=== PATIENT | female | born 1950 | race African-American/Black ===

== ENCOUNTER 2017-10-11 23:00 | Emergency (ER) | payer MEDICARE, MEDICAID ==
[~2017-10-11] VITALS: Ht 167.6 cm; Wt 109.0 kg
[~2017-10-11 23:00] MED LIST: CARV25TA47 PO; GABA-531 PO; HYDR100T26 PO; IPRA3AMP9 INH; NIFE90TA34 PO; POLY17PO3 PO
[2017-10-12] MEDS ORDERED: ALBUTEROL (0.083%) 2.5MG/3ML NEB HHN STA (00:07)
[2017-10-12] MEDS ORDERED: IPRATROPIUM BROMIDE (0.02%) 0.5MG/2.5ML NEB HHN STA (00:07)
[2017-10-12] MEDS ORDERED: METHYLPREDNISOLONE SOD SUCC 125 MG/2 ML VIAL IV STA (00:07)
[2017-10-12] MEDS ORDERED: SODIUM CHLORIDE 0.9% 1,000 ML IV ONE (00:07)
[2017-10-12] MEDS ORDERED: ASPIRIN 81MG TABLET PO ONE (00:15)
[2017-10-12] MEDS ORDERED: LEVOFLOXACIN 750MG PREMIX 150 ML IV ONE (00:15)
[2017-10-12] MEDS ORDERED: MAGNESIUM 2 G PREMIX 50 ML IV ONE (00:15)
[2017-10-12] MEDS ORDERED: NITROGLYCERIN OINT 1GM/INCH UDPKT TD ONE (00:15)
[2017-10-12 00:44] LABS: BG BASE EXCESS -6.1 mmol/L (-2.0-2.0); BG CARBOXYHEMOGLOBIN 0.4 % (0.5-1.5); BG DEOXYHEMOGLOBIN 13.6 % (0.0-5.0); BG FRACTION INSPIRED OXYGEN 21; BG HCO3 ACT 18.5 mmol/L (22.0-26.0); BG OXYGEN SATURATION 86.3 % (92.0-98.5); BG PCO2 33.6 mmHg (35.0-45.0); BG PH 7.359 (7.350-7.450); BG SAMPLE SITE RIGHT RADIAL; BG TOTAL HEMOGLOBIN 11.1 g/dL (12.0-18.0); BG VENT MODE ROOM AIR
[2017-10-12] MEDS: MAGNESIUM 1 G PREMIX 100 ML IV SCH ×2 (01:08→02:00)
[2017-10-12 01:54] LABS: BASOPHILS % 0.8 % (0.0-2.0); EOSINOPHILS % 2.8 % (0.0-5.0); HEMATOCRIT. 24.9 % (36.0-48.0); HEMOGLOBIN. 7.6 g/dL (12.0-16.0); LYMPHOCYTES % 20.5 % (20.0-50.0); MEAN CORPUSCULAR HEMOGLOBIN 24.6 pg (28.0-32.0); MEAN CORPUSCULAR VOLUME 80.5 fL (81.0-99.0); MEAN PLATELET VOLUME 11.3 fl (7.4-10.4); MONOCYTES % 9.6 % (2.0-8.0); NEUTROPHILS % 66.3 % (40.0-76.0); PLATELET 232 x1000/uL (130-400); RED BLOOD CELL COUNT 3.09 mill/uL (4.2-5.4); RED CELL DISTRIBUTION WIDTH 22.3 % (11.6-14.6)
[2017-10-12 02:02] LABS: CHLORIDE 111 mEq/L (98-107); INR 1.2; PROTHROMBIN TIME 12.2 sec (9.4-11.6)
[2017-10-12 02:08] LABS: ETHANOL BLOOD < 10 mg/dL
[2017-10-12 07:27] VITALS: BP 147/81
[2017-10-12] MEDS ORDERED: DEXTROSE 50% WATER 50ML SYRINGE IV PRN (09:30)
[2017-10-12] MEDS ORDERED: METHYLPREDNISOLONE SOD SUCC 40 MG/ML VIAL IV SCH (09:30)
[2017-10-12] MEDS ORDERED: CLONIDINE 0.1MG TABLET PO PRN (09:30)
[2017-10-12] MEDS ORDERED: AMLODIPINE 10MG TABLET PO SCH (09:30)
[2017-10-12] MEDS ORDERED: IPRATROPIUM/ALBUTEROL 0.5-3(2.5)MG/3ML NEB HHN SCH (12:00)
[2017-10-12] MEDS ORDERED: BLOOD SUGAR DIAGNOSTIC STRIP TEST SCH (13:00)
[2017-10-12] MEDS ORDERED: INSULIN LISPRO 100 UNITS/ML SUBCUT SCH (13:20)
[2017-10-12] MEDS ORDERED: FUROSEMIDE 40MG/4ML VIAL IVP SCH (17:00)
== END 2017-10-12 10:00 | disposition left against medical advice (07) ==
LOC: ER 23:31 → EDBEDREQ 10-12 02:05 → EDBEDREQTM 10-12 02:05 → ER 10-12 10:00 → CANBEDREQ 10-12 16:46
DX: J18.9 Pneumonia, unspecified organism (principal); R09.02 Hypoxemia; E11.22 Type 2 diabetes mellitus with diabetic chronic kidney disease; I12.9 Hypertensive chronic kidney disease with stage 1 through stage 4 chronic kidney disease, or unspecified chronic kidney disease; N18.9 Chronic kidney disease, unspecified; J45.909 Unspecified asthma, uncomplicated; R06.00 Dyspnea, unspecified; Z91.14 Patient's other noncompliance with medication regimen; Z99.81 Dependence on supplemental oxygen
CPT/HCPCS: 36415; 36600; 71045; 80053; 82375; 82805; 82962; 83605; 83690; 83880; 84484; 85025; 85610; 87040; 93005; 94640; 96365; 96366; 96368; 96375; 99285; G0482; J1956; J2930; J3475; J7030; J7611

== ENCOUNTER 2017-11-30 23:43 | Emergency (ER) | payer MEDICARE, MEDICAID ==
[~2017-11-30] VITALS: Ht 180.3 cm; Wt 125.0 kg
[2017-12-01] MEDS ORDERED: ALBUTEROL (0.083%) 2.5MG/3ML NEB HHN STA (01:21)
[2017-12-01] MEDS ORDERED: IPRATROPIUM BROMIDE (0.02%) 0.5MG/2.5ML NEB HHN STA (01:21)
[2017-12-01] MEDS ORDERED: FUROSEMIDE 40MG/4ML VIAL IV ONE (01:30)
[2017-12-01 02:13] LABS: BASOPHILS % 0.3 % (0.0-2.0); EOSINOPHILS % 1.1 % (0.0-5.0); MEAN CORPUSCULAR HEMOGLOBIN 27.5 pg (28.0-32.0); MEAN CORPUSCULAR VOLUME 83.8 fL (81.0-99.0); MEAN PLATELET VOLUME 12.1 fl (7.4-10.4); MONOCYTES % 8.1 % (2.0-8.0); NEUTROPHILS % 82.5 % (40.0-76.0); PLATELET 219 x1000/uL (130-400); RED BLOOD CELL COUNT 2.08 mill/uL (4.2-5.4); RED CELL DISTRIBUTION WIDTH 18.8 % (11.6-14.6)
[2017-12-01 02:17] LABS: CHLORIDE 114 mEq/L (98-107)
[2017-12-01 02:23] LABS: HEMATOCRIT. 17.4 % (36.0-48.0); HEMOGLOBIN. 5.7 g/dL (12.0-16.0)
[2017-12-01 03:03] VITALS: BP 164/83
== END 2017-12-01 04:36 | disposition left against medical advice (07) ==
LOC: ER 23:43
DX: I11.0 Hypertensive heart disease with heart failure (principal); I50.9 Heart failure, unspecified; J44.9 Chronic obstructive pulmonary disease, unspecified; E11.9 Type 2 diabetes mellitus without complications; D64.9 Anemia, unspecified; N19 Unspecified kidney failure; Z79.899 Other long term (current) drug therapy
CPT/HCPCS: 36415; 71045; 80053; 83880; 84484; 85025; 99285

== ENCOUNTER 2017-12-10 11:50 | Inpatient (IN) | payer MEDICARE, MEDICAID ==
[~2017-12-10] VITALS: Ht 157.5 cm; Wt 97.5 kg
[2017-12-10] MEDS ORDERED: SODIUM CHLORIDE 0.9% 1,000 ML IV ONE (12:44)
[2017-12-10 12:59] LABS: MEAN CORPUSCULAR HEMOGLOBIN 26.1 pg (28.0-32.0); MEAN CORPUSCULAR VOLUME 82.2 fL (81.0-99.0); PLATELET 242 x1000/uL (130-400); RED BLOOD CELL COUNT 1.81 mill/uL (4.2-5.4); RED CELL DISTRIBUTION WIDTH 18.3 % (11.6-14.6)
[2017-12-10 13:02] LABS: HEMATOCRIT. 14.9 % (36.0-48.0); HEMOGLOBIN. 4.7 g/dL (12.0-16.0)
[2017-12-10 13:04] LABS: CHLORIDE 117 mEq/L (98-107)
[2017-12-10 13:06] LABS: INR 1.1; PROTHROMBIN TIME 11.4 sec (9.1-11.1)
[2017-12-10] MEDS ORDERED: FUROSEMIDE 40MG/4ML VIAL IVP ONE (13:30)
[2017-12-10 13:32] LABS: PLATELET ESTIMATE NORMAL
[2017-12-10] MEDS ORDERED: ENALAPRIL 2.5MG/2ML VIAL 2ML IV ONE (14:00)
[2017-12-10 15:37] VITALS: BP 149/67
[2017-12-10] MEDS ORDERED: HYDROMORPHONE HCL/PF 2MG/ML CPJ IV PRN (15:45)
[2017-12-10 16:00] VITALS: BP 149/67
[2017-12-10] MEDS: ENOXAPARIN 40MG/0.4ML SYR SUBCUT SCH (17:56)
[2017-12-10] MEDS: CARVEDILOL 12.5MG TABLET PO SCH (17:56)
[2017-12-10] MEDS: FUROSEMIDE 40MG/4ML VIAL IVP SCH (17:57)
[2017-12-10] MEDS ORDERED: MINO2.5T2 PO (18:26)
[2017-12-10] MEDS ORDERED: VERA80TA2 PO (18:26)
[2017-12-10] MEDS ORDERED: MONT10TA24 PO (18:26)
[2017-12-10] MEDS ORDERED: ASPI-1159 PO (18:26)
[2017-12-10] MEDS ORDERED: ROSU10TA25 PO (18:26)
[2017-12-10] MEDS ORDERED: CLON-457 PO (18:26)
[2017-12-10] MEDS ORDERED: SITA50TA3 PO (18:26)
[2017-12-10] MEDS ORDERED: FURO80TA3 PO (18:26)
[2017-12-10] MEDS ORDERED: DEXTROSE 50% WATER 50ML SYRINGE IV PRN (19:30)
[2017-12-10 20:00] VITALS: BP 151/53
[2017-12-10] MEDS: BLOOD SUGAR DIAGNOSTIC STRIP TEST SCH (20:42)
[2017-12-10] MEDS: INSULIN LISPRO 100 UNITS/ML SUBCUT SCH (20:42)
[2017-12-11] VITALS (12 sets, daily range): BP systolic 136–181; BP diastolic 41–83
[2017-12-11] MEDS: IPRATROPIUM/ALBUTEROL 0.5-3(2.5)MG/3ML NEB HHN SCH ×4 (00:34→20:42)
[2017-12-11] MEDS: CARVEDILOL 12.5MG TABLET PO SCH ×3 (00:38→21:54)
[2017-12-11] MEDS: VERAPAMIL HCL 80 MG TABLET PO SCH ×3 (05:32→22:00)
[2017-12-11] MEDS: BLOOD SUGAR DIAGNOSTIC STRIP TEST SCH ×4 (06:34→21:54)
[2017-12-11 06:45] LABS: BASOPHILS % 0.6 % (0.0-2.0); EOSINOPHILS % 1.5 % (0.0-5.0); LYMPHOCYTES % 14.8 % (20.0-50.0); MEAN CORPUSCULAR VOLUME 83.2 fL (81.0-99.0); MONOCYTES % 8.4 % (2.0-8.0); NEUTROPHILS % 74.7 % (40.0-76.0); PLATELET 246 x1000/uL (130-400); RED BLOOD CELL COUNT 1.86 mill/uL (4.2-5.4); RED CELL DISTRIBUTION WIDTH 18.1 % (11.6-14.6)
[2017-12-11 07:09] LABS: PHOSPHORUS 5.2 mg/dL (2.5-4.9)
[2017-12-11 07:13] LABS: CREATINE KINASE MB FRACTION 1.3 ng/mL (0.5-3.6)
[2017-12-11 07:28] LABS: HEMATOCRIT. 15.5 % (36.0-48.0); HEMOGLOBIN. 4.8 g/dL (12.0-16.0)
[2017-12-11] MEDS: INSULIN LISPRO 100 UNITS/ML SUBCUT SCH ×4 (08:10→21:00)
[2017-12-11] MEDS: FUROSEMIDE 40MG/4ML VIAL IVP SCH (08:57)
[2017-12-11] MEDS: DEXTROSE 5% WATER 1,000 ML IV SCH (12:57)
[2017-12-11 13:04] LABS: BG BASE EXCESS -8.1 mmol/L (-2.0-2.0); BG CARBOXYHEMOGLOBIN 0.4 % (0.5-1.5); BG DEOXYHEMOGLOBIN 11.6 % (0.0-5.0); BG FRACTION INSPIRED OXYGEN 21; BG HCO3 ACT 17.4 mmol/L (22.0-26.0); BG METHEMOGLOBIN 0.6 % (0.0-1.5); BG OXYGEN SATURATION 88.3 % (92.0-98.5); BG OXYHEMOGLOBIN 87.4 % (94.0-97.0); BG PCO2 35.6 mmHg (35.0-45.0); BG PH 7.308 (7.350-7.450); BG PO2 59.1 mmHg (75.0-100.0); BG SAMPLE SITE LEFT RADIAL; BG TOTAL HEMOGLOBIN 5.3 g/dL (12.0-18.0); BG VENT MODE ROOM AIR
[2017-12-11] MEDS: ENOXAPARIN 40MG/0.4ML SYR SUBCUT SCH (16:00)
[2017-12-11] MEDS ORDERED: FUROSEMIDE 40MG/4ML VIAL IVP NR (16:13)
[2017-12-11] MEDS ORDERED: CEFEPIME 2,000 MG in DEXT 5% WATER 100 ML IV NR (17:30)
[2017-12-11] MEDS: ENALAPRIL 2.5MG/2ML VIAL 2ML IV SCH (17:39)
[2017-12-11] MEDS: MONTELUKAST SODIUM 10MG TABLET PO SCH (17:40)
[2017-12-11] MEDS: HYDRALAZINE 20MG/ML VIAL IV SCH ×2 (17:40→21:55)
[2017-12-11] MEDS: METRONIDAZOLE 500 MG PREMIX 100 ML IV SCH ×2 (18:00→21:53)
[2017-12-11] MEDS: LORAZEPAM 2MG/ML CPJ IV PRN (22:34)
[2017-12-12] VITALS (22 sets, daily range): BP systolic 150–208; BP diastolic 67–117
[2017-12-12] MEDS: METRONIDAZOLE 500 MG PREMIX 100 ML IV SCH ×3 (01:28→17:52)
[2017-12-12] MEDS: ENALAPRIL 2.5MG/2ML VIAL 2ML IV SCH ×3 (01:28→17:51)
[2017-12-12] MEDS: IPRATROPIUM/ALBUTEROL 0.5-3(2.5)MG/3ML NEB HHN SCH ×4 (02:07→20:45)
[2017-12-12] MEDS: HYDRALAZINE 20MG/ML VIAL IV SCH ×4 (04:00→22:00)
[2017-12-12] MEDS: INSULIN LISPRO 100 UNITS/ML SUBCUT SCH ×4 (08:00→21:00)
[2017-12-12] MEDS: BLOOD SUGAR DIAGNOSTIC STRIP TEST SCH ×4 (08:12→20:34)
[2017-12-12] MEDS: DEXTROSE 5% WATER 1,000 ML IV SCH (08:12)
[2017-12-12] MEDS: CARVEDILOL 12.5MG TABLET PO SCH ×3 (08:13→20:20)
[2017-12-12 10:15] LABS: BASOPHILS % 0.5 % (0.0-2.0); EOSINOPHILS % 1.8 % (0.0-5.0); LYMPHOCYTES % 9.8 % (20.0-50.0); MEAN CORPUSCULAR HEMOGLOBIN 26.7 pg (28.0-32.0); MEAN CORPUSCULAR VOLUME 83.8 fL (81.0-99.0); MONOCYTES % 7.5 % (2.0-8.0); NEUTROPHILS % 80.4 % (40.0-76.0); PLATELET 271 x1000/uL (130-400); RED BLOOD CELL COUNT 2.39 mill/uL (4.2-5.4); RED CELL DISTRIBUTION WIDTH 16.8 % (11.6-14.6)
[2017-12-12 10:23] LABS: HEMOGLOBIN. 6.4 g/dL (12.0-16.0)
[2017-12-12] MEDS: CLONIDINE 0.1MG TABLET PO PRN (10:46)
[2017-12-12 12:29] LABS: CLARITY URINE CLOUDY (CLEAR); COLOR URINE YELLOW (YELLOW); KETONES URINE NEGATIVE (NEGATIVE); LEUKOCYTE ESTERASE URINE 1+ (NEGATIVE); NITRITE URINE NEGATIVE (NEGATIVE); OCCULT BLOOD URINE 2+ (NEGATIVE); PROTEIN URINE 3+ (NEGATIVE); SPECIFIC GRAVITY URINE 1.016 (1.005-1.030); UROBILINOGEN URINE 0.2 E.U./dL (0.2-1.0)
[2017-12-12] MEDS: VERAPAMIL HCL 80 MG TABLET PO SCH ×2 (13:46→23:05)
[2017-12-12] MEDS: ENOXAPARIN 40MG/0.4ML SYR SUBCUT SCH (15:20)
[2017-12-12] MEDS: CEFEPIME 1,000 MG in DEXTROSE 5% WATER 50 ML IV SCH (15:43)
[2017-12-12] MEDS: MONTELUKAST SODIUM 10MG TABLET PO SCH (17:00)
[2017-12-12] MEDS: ACETAMINOPHEN 325MG TABLET PO PRN (20:27)
[2017-12-12] MEDS: LORAZEPAM 2MG/ML CPJ IV PRN (22:19)
[2017-12-13] VITALS (17 sets, daily range): BP systolic 151–218; BP diastolic 58–132
[2017-12-13] MEDS: LORAZEPAM 2MG/ML CPJ IV PRN ×2 (02:13→21:13)
[2017-12-13] MEDS: METRONIDAZOLE 500 MG PREMIX 100 ML IV SCH ×3 (02:20→18:29)
[2017-12-13] MEDS: HYDRALAZINE 20MG/ML VIAL IV SCH ×4 (04:00→21:50)
[2017-12-13] MEDS: ENALAPRIL 2.5MG/2ML VIAL 2ML IV SCH ×5 (06:33→23:44)
[2017-12-13] MEDS: VERAPAMIL HCL 80 MG TABLET PO SCH ×3 (06:34→21:12)
[2017-12-13] MEDS: CLONIDINE 0.1MG TABLET PO PRN ×2 (07:29→13:50)
[2017-12-13] MEDS: BLOOD SUGAR DIAGNOSTIC STRIP TEST SCH ×4 (07:38→20:56)
[2017-12-13] MEDS: INSULIN LISPRO 100 UNITS/ML SUBCUT SCH ×4 (08:00→20:56)
[2017-12-13 08:25] LABS: BG BASE EXCESS -9.3 mmol/L (-2.0-2.0); BG CARBOXYHEMOGLOBIN 0.5 % (0.5-1.5); BG DEOXYHEMOGLOBIN 11.2 % (0.0-5.0); BG FRACTION INSPIRED OXYGEN 21; BG HCO3 ACT 16.1 mmol/L (22.0-26.0); BG METHEMOGLOBIN 0.2 % (0.0-1.5); BG OXYGEN SATURATION 88.7 % (92.0-98.5); BG OXYHEMOGLOBIN 88.1 % (94.0-97.0); BG PCO2 32.8 mmHg (35.0-45.0); BG PH 7.308 (7.350-7.450); BG PO2 60.9 mmHg (75.0-100.0); BG SAMPLE SITE RIGHT RADIAL; BG TOTAL HEMOGLOBIN 6.8 g/dL (12.0-18.0); BG VENT MODE ROOM AIR
[2017-12-13] MEDS: IPRATROPIUM/ALBUTEROL 0.5-3(2.5)MG/3ML NEB HHN SCH ×3 (08:46→20:28)
[2017-12-13] MEDS: CARVEDILOL 12.5MG TABLET PO SCH (09:00)
[2017-12-13] MEDS: ENOXAPARIN 40MG/0.4ML SYR SUBCUT SCH (16:00)
[2017-12-13] MEDS: CEFEPIME 1,000 MG in DEXTROSE 5% WATER 50 ML IV SCH (16:54)
[2017-12-13] MEDS ORDERED: METOPROLOL TARTRATE 5MG/5ML VIAL IV SCH (17:30)
[2017-12-13] MEDS: MONTELUKAST SODIUM 10MG TABLET PO SCH (18:00)
[2017-12-13] MEDS: AMLODIPINE 5MG TABLET PO SCH (18:28)
[2017-12-13 19:07] LABS: HEMATOCRIT 22.2 % (36.0-48.0); HEMOGLOBIN 7.2 g/dL (12.0-16.0)
[2017-12-13] MEDS: METOPROLOL TARTRATE 50MG TABLET PO SCH (20:35)
[2017-12-14] VITALS (14 sets, daily range): BP systolic 159–209; BP diastolic 64–89
[2017-12-14] MEDS: LORAZEPAM 2MG/ML CPJ IV PRN ×2 (01:20→22:48)
[2017-12-14] MEDS: METRONIDAZOLE 500 MG PREMIX 100 ML IV SCH ×3 (01:20→17:53)
[2017-12-14] MEDS: HYDRALAZINE 20MG/ML VIAL IV PRN ×2 (01:21→23:10)
[2017-12-14] MEDS: IPRATROPIUM/ALBUTEROL 0.5-3(2.5)MG/3ML NEB HHN SCH ×4 (01:58→20:22)
[2017-12-14] MEDS: VERAPAMIL HCL 80 MG TABLET PO SCH ×3 (06:05→22:00)
[2017-12-14] MEDS: HYDRALAZINE 20MG/ML VIAL IV SCH ×2 (06:05→09:47)
[2017-12-14] MEDS: ENALAPRIL 2.5MG/2ML VIAL 2ML IV SCH ×3 (06:05→17:53)
[2017-12-14 06:32] LABS: HEMATOCRIT. 23.3 % (36.0-48.0); HEMOGLOBIN. 7.5 g/dL (12.0-16.0); MEAN CORPUSCULAR HEMOGLOBIN 26.8 pg (28.0-32.0); MEAN CORPUSCULAR VOLUME 83.7 fL (81.0-99.0); MEAN PLATELET VOLUME 10.8 fl (7.4-10.4); PLATELET 281 x1000/uL (130-400); RED BLOOD CELL COUNT 2.78 mill/uL (4.2-5.4); RED CELL DISTRIBUTION WIDTH 16.5 % (11.6-14.6)
[2017-12-14 07:21] LABS: PHOSPHORUS 4.9 mg/dL (2.5-4.9)
[2017-12-14] MEDS: INSULIN LISPRO 100 UNITS/ML SUBCUT SCH ×4 (08:00→21:00)
[2017-12-14] MEDS: BLOOD SUGAR DIAGNOSTIC STRIP TEST SCH ×4 (08:25→21:00)
[2017-12-14] MEDS ORDERED: CLONIDINE HCL 0.1MG/24HR PATCH TD SCH (09:00)
[2017-12-14] MEDS: METOPROLOL TARTRATE 50MG TABLET PO SCH ×2 (09:22→21:00)
[2017-12-14] MEDS: AMLODIPINE 5MG TABLET PO SCH ×2 (09:22→17:52)
[2017-12-14] MEDS: DEXTROSE 5% WATER 1,000 ML IV SCH (09:47)
[2017-12-14] MEDS: CLONIDINE 0.1MG TABLET PO PRN (10:44)
[2017-12-14 15:10] LABS: BG BASE EXCESS -8.1 mmol/L (-2.0-2.0); BG CARBOXYHEMOGLOBIN 0.1 % (0.5-1.5); BG DEOXYHEMOGLOBIN 10.9 % (0.0-5.0); BG FRACTION INSPIRED OXYGEN 36; BG HCO3 ACT 16.6 mmol/L (22.0-26.0); BG METHEMOGLOBIN 0.8 % (0.0-1.5); BG OXYHEMOGLOBIN 88.2 % (94.0-97.0); BG PCO2 30.7 mmHg (35.0-45.0); BG PH 7.351 (7.350-7.450); BG PO2 57.1 mmHg (75.0-100.0); BG SAMPLE SITE RIGHT RADIAL; BG TOTAL HEMOGLOBIN 8.4 g/dL (12.0-18.0); BG VENT MODE NASAL CANNULA
[2017-12-14] MEDS: ISOSORB DINIT/HYDRALAZINE HCL 20/37.5MG TABLET PO SCH ×2 (15:24→22:00)
[2017-12-14] MEDS: CEFEPIME 1,000 MG in DEXTROSE 5% WATER 50 ML IV SCH (15:25)
[2017-12-14 15:34] LABS: PLATELET ESTIMATE NORMAL
[2017-12-14] MEDS: ENOXAPARIN 40MG/0.4ML SYR SUBCUT SCH (16:00)
[2017-12-14] MEDS: MONTELUKAST SODIUM 10MG TABLET PO SCH (17:52)
[2017-12-15] VITALS (14 sets, daily range): BP systolic 130–201; BP diastolic 48–149
[2017-12-15] MEDS: IPRATROPIUM/ALBUTEROL 0.5-3(2.5)MG/3ML NEB HHN SCH ×4 (01:10→20:28)
[2017-12-15] MEDS: DEXTROSE 5% WATER 1,000 ML IV SCH (03:10)
[2017-12-15] MEDS: METRONIDAZOLE 500 MG PREMIX 100 ML IV SCH ×2 (03:12→10:00)
[2017-12-15] MEDS: ISOSORB DINIT/HYDRALAZINE HCL 20/37.5MG TABLET PO SCH ×4 (06:52→22:01)
[2017-12-15] MEDS: ENALAPRIL 2.5MG/2ML VIAL 2ML IV SCH ×4 (06:52→18:36)
[2017-12-15] MEDS: VERAPAMIL HCL 80 MG TABLET PO SCH ×4 (06:53→22:00)
[2017-12-15] MEDS: BLOOD SUGAR DIAGNOSTIC STRIP TEST SCH ×4 (07:30→21:51)
[2017-12-15] MEDS: INSULIN LISPRO 100 UNITS/ML SUBCUT SCH ×4 (08:00→21:00)
[2017-12-15] MEDS: METOPROLOL TARTRATE 50MG TABLET PO SCH ×2 (09:00→22:00)
[2017-12-15] MEDS: AMLODIPINE 5MG TABLET PO SCH ×2 (09:00→16:14)
[2017-12-15 10:02] LABS: BASOPHILS % 0.4 % (0.0-2.0); EOSINOPHILS % 0.7 % (0.0-5.0); HEMATOCRIT. 24.2 % (36.0-48.0); HEMOGLOBIN. 7.8 g/dL (12.0-16.0); LYMPHOCYTES % 8.7 % (20.0-50.0); MEAN CORPUSCULAR HEMOGLOBIN 27.2 pg (28.0-32.0); MEAN CORPUSCULAR VOLUME 84.8 fL (81.0-99.0); MEAN PLATELET VOLUME 11.2 fl (7.4-10.4); MONOCYTES % 7.8 % (2.0-8.0); NEUTROPHILS % 82.4 % (40.0-76.0); PLATELET 274 x1000/uL (130-400); RED BLOOD CELL COUNT 2.85 mill/uL (4.2-5.4); RED CELL DISTRIBUTION WIDTH 16.9 % (11.6-14.6)
[2017-12-15 10:38] LABS: PHOSPHORUS 5.5 mg/dL (2.5-4.9)
[2017-12-15] MEDS ORDERED: CLONIDINE 0.2MG TABLET PO PRN (12:15)
[2017-12-15] MEDS ORDERED: FUROSEMIDE 20MG/2ML VIAL IVP NR (12:38)
[2017-12-15 12:48] LABS: BG BASE EXCESS -12.1 mmol/L (-2.0-2.0); BG CARBOXYHEMOGLOBIN 0.3 % (0.5-1.5); BG DEOXYHEMOGLOBIN 10.6 % (0.0-5.0); BG FRACTION INSPIRED OXYGEN 21; BG HCO3 ACT 13.2 mmol/L (22.0-26.0); BG METHEMOGLOBIN 0.2 % (0.0-1.5); BG OXYGEN SATURATION 89.3 % (92.0-98.5); BG OXYHEMOGLOBIN 88.9 % (94.0-97.0); BG PCO2 27.8 mmHg (35.0-45.0); BG PH 7.295 (7.350-7.450); BG PO2 62.4 mmHg (75.0-100.0); BG SAMPLE SITE RIGHT BRACHIAL; BG TOTAL HEMOGLOBIN 7.8 g/dL (12.0-18.0); BG VENT MODE ROOM AIR
[2017-12-15] MEDS: METRONIDAZOLE 500MG TABLET PO SCH ×2 (14:00→22:00)
[2017-12-15] MEDS: ENOXAPARIN 40MG/0.4ML SYR SUBCUT SCH (16:00)
[2017-12-15] MEDS: CEFEPIME 1,000 MG in DEXTROSE 5% WATER 50 ML IV SCH (16:28)
[2017-12-15] MEDS: MONTELUKAST SODIUM 10MG TABLET PO SCH (16:43)
[2017-12-15] MEDS: CLONIDINE HCL 0.3MG/24HR PATCH TD SCH (16:43)
[2017-12-16] VITALS (12 sets, daily range): BP systolic 117–171; BP diastolic 40–88
[2017-12-16] MEDS: IPRATROPIUM/ALBUTEROL 0.5-3(2.5)MG/3ML NEB HHN SCH ×4 (02:07→20:10)
[2017-12-16] MEDS: METRONIDAZOLE 500MG TABLET PO SCH ×3 (05:52→22:19)
[2017-12-16] MEDS: VERAPAMIL HCL 80 MG TABLET PO SCH ×3 (05:52→22:48)
[2017-12-16] MEDS: ENALAPRIL 2.5MG/2ML VIAL 2ML IV SCH ×4 (05:52→18:00)
[2017-12-16] MEDS: ISOSORB DINIT/HYDRALAZINE HCL 20/37.5MG TABLET PO SCH ×3 (05:52→21:16)
[2017-12-16] MEDS: DEXTROSE 5% WATER 1,000 ML IV SCH ×2 (05:53→12:52)
[2017-12-16] MEDS: BLOOD SUGAR DIAGNOSTIC STRIP TEST SCH ×4 (07:30→21:00)
[2017-12-16] MEDS: INSULIN LISPRO 100 UNITS/ML SUBCUT SCH ×4 (08:00→21:00)
[2017-12-16] MEDS ORDERED: FUROSEMIDE 20MG/2ML VIAL IVP SCH (09:00)
[2017-12-16] MEDS: FUROSEMIDE 40MG/4ML VIAL IVP SCH (09:58)
[2017-12-16] MEDS: AMLODIPINE 5MG TABLET PO SCH ×2 (09:58→17:53)
[2017-12-16] MEDS: METOPROLOL TARTRATE 50MG TABLET PO SCH ×2 (09:58→21:05)
[2017-12-16] MEDS: HYDRALAZINE 20MG/ML VIAL IV PRN (09:59)
[2017-12-16] MEDS: LORAZEPAM 2MG/ML CPJ IV PRN (11:51)
[2017-12-16] MEDS: CEFEPIME 1,000 MG in DEXTROSE 5% WATER 50 ML IV SCH (17:53)
[2017-12-16] MEDS: MONTELUKAST SODIUM 10MG TABLET PO SCH (17:53)
[2017-12-16] MEDS: ENOXAPARIN 40MG/0.4ML SYR SUBCUT SCH (18:57)
[2017-12-17] VITALS (28 sets, daily range): BP systolic 126–185; BP diastolic 30–121
[2017-12-17] MEDS: LORAZEPAM 2MG/ML CPJ IV PRN (00:09)
[2017-12-17] MEDS: ENALAPRIL 2.5MG/2ML VIAL 2ML IV SCH ×3 (00:13→12:00)
[2017-12-17] MEDS: IPRATROPIUM/ALBUTEROL 0.5-3(2.5)MG/3ML NEB HHN SCH ×4 (01:54→20:29)
[2017-12-17] MEDS: ISOSORB DINIT/HYDRALAZINE HCL 20/37.5MG TABLET PO SCH ×3 (06:00→16:41)
[2017-12-17] MEDS: METRONIDAZOLE 500MG TABLET PO SCH ×3 (06:00→23:33)
[2017-12-17] MEDS: BLOOD SUGAR DIAGNOSTIC STRIP TEST SCH ×4 (07:30→21:35)
[2017-12-17] MEDS: INSULIN LISPRO 100 UNITS/ML SUBCUT SCH ×4 (08:00→21:00)
[2017-12-17] MEDS ORDERED: FUROSEMIDE 40MG/4ML VIAL IVP NR (08:45)
[2017-12-17] MEDS: METOPROLOL TARTRATE 50MG TABLET PO SCH ×2 (09:00→21:00)
[2017-12-17] MEDS: AMLODIPINE 5MG TABLET PO SCH ×2 (09:00→17:00)
[2017-12-17] MEDS: FUROSEMIDE 40MG/4ML VIAL IVP SCH (09:00)
[2017-12-17 11:32] LABS: BG BASE EXCESS -10.8 mmol/L (-2.0-2.0); BG CARBOXYHEMOGLOBIN 0.4 % (0.5-1.5); BG DEOXYHEMOGLOBIN 8.1 % (0.0-5.0); BG FRACTION INSPIRED OXYGEN 32; BG HCO3 ACT 17.1 mmol/L (22.0-26.0); BG METHEMOGLOBIN 0.2 % (0.0-1.5); BG OXYGEN SATURATION 91.9 % (92.0-98.5); BG OXYHEMOGLOBIN 91.3 % (94.0-97.0); BG PCO2 47.8 mmHg (35.0-45.0); BG PH 7.172 (7.350-7.450); BG PO2 71.9 mmHg (75.0-100.0); BG SAMPLE SITE RIGHT RADIAL; BG TOTAL HEMOGLOBIN 8.5 g/dL (12.0-18.0); BG VENT MODE NASAL CANNULA
[2017-12-17 14:01] LABS: AMMONIA 46 uMol/L (<32)
[2017-12-17] MEDS: ENOXAPARIN 40MG/0.4ML SYR SUBCUT SCH (16:00)
[2017-12-17 16:40] LABS: CHLORIDE 116 mEq/L (98-107)
[2017-12-17] MEDS: MONTELUKAST SODIUM 10MG TABLET PO SCH (17:00)
[2017-12-17] MEDS ORDERED: EPINEPHRINE 0.1MG/ML (1:10,000) 10ML SYR ONE (17:47)
[2017-12-17] MEDS ORDERED: SODIUM BICARBONATE 7.5% 0.9 MEQ/ML 50ML SYR IV ONE (17:47)
[2017-12-17] MEDS ORDERED: ATROPINE SULFATE 1MG/10ML SYR ONE (17:47)
[2017-12-17] MEDS: CEFEPIME 1,000 MG in DEXTROSE 5% WATER 50 ML IV SCH (19:29)
[2017-12-17 21:00] LABS: BG BASE EXCESS -11.1 mmol/L (-2.0-2.0); BG CARBOXYHEMOGLOBIN 0.3 % (0.5-1.5); BG DEOXYHEMOGLOBIN 0.8 % (0.0-5.0); BG FRACTION INSPIRED OXYGEN 100; BG HCO3 ACT 15.4 mmol/L (22.0-26.0); BG METHEMOGLOBIN 0.3 % (0.0-1.5); BG OXYGEN SATURATION 99.2 % (92.0-98.5); BG OXYHEMOGLOBIN 98.6 % (94.0-97.0); BG PH 7.238 (7.350-7.450); BG PO2 170.1 mmHg (75.0-100.0); BG SAMPLE SITE RIGHT RADIAL; BG TIDAL VOLUME(mL) 500 mL; BG TOTAL HEMOGLOBIN 8.6 g/dL (12.0-18.0); BG VENT MODE VENT - A/C; BG VENT RATE 14 set
[2017-12-17] MEDS ORDERED: PROPOFOL 10MG/ML 100ML 100 ML IV PRN (21:45)
[2017-12-17] MEDS: VERAPAMIL HCL 80 MG TABLET PO SCH (22:00)
[2017-12-17] MEDS: PROPOFOL 10MG/ML 100ML 100 ML IV PRN (23:20)
[2017-12-17 23:49] LABS: PHOSPHORUS 5.6 mg/dL (2.5-4.9)
[2017-12-18] VITALS (90 sets, daily range): BP systolic 101–197; BP diastolic 52–116
[2017-12-18] MEDS ORDERED: SODIUM BICARBONATE 8.4% 1 MEQ/ML 50ML SYR IV ONE (01:41)
[2017-12-18] MEDS: ENALAPRIL 2.5MG/2ML VIAL 2ML IV SCH ×6 (01:48→23:39)
[2017-12-18] MEDS: IPRATROPIUM/ALBUTEROL 0.5-3(2.5)MG/3ML NEB HHN SCH ×4 (01:52→20:24)
[2017-12-18] MEDS ORDERED: SODIUM BICARBONATE 8.4% 1 MEQ/ML 50ML SYR IV SCH (01:55)
[2017-12-18 05:32] LABS: HEMATOCRIT. 24.7 % (36.0-48.0); HEMOGLOBIN. 7.6 g/dL (12.0-16.0); MEAN CORPUSCULAR HEMOGLOBIN 26.3 pg (28.0-32.0); MEAN CORPUSCULAR VOLUME 85.3 fL (81.0-99.0); MEAN PLATELET VOLUME 11.5 fl (7.4-10.4); PLATELET 144 x1000/uL (130-400); RED CELL DISTRIBUTION WIDTH 16.9 % (11.6-14.6)
[2017-12-18] MEDS: VERAPAMIL HCL 80 MG TABLET PO SCH ×3 (05:57→23:30)
[2017-12-18] MEDS: METRONIDAZOLE 500MG TABLET PO SCH (05:57)
[2017-12-18] MEDS: PROPOFOL 10MG/ML 100ML 100 ML IV PRN ×4 (05:59→21:03)
[2017-12-18] MEDS: ISOSORB DINIT/HYDRALAZINE HCL 20/37.5MG TABLET PO SCH ×4 (06:00→20:56)
[2017-12-18] MEDS: INSULIN LISPRO 100 UNITS/ML SUBCUT SCH ×4 (06:41→20:52)
[2017-12-18] MEDS: BLOOD SUGAR DIAGNOSTIC STRIP TEST SCH ×4 (06:41→20:53)
[2017-12-18 07:28] LABS: BG BASE EXCESS -9.8 mmol/L (-2.0-2.0); BG CARBOXYHEMOGLOBIN 0.4 % (0.5-1.5); BG DEOXYHEMOGLOBIN 0.8 % (0.0-5.0); BG HCO3 ACT 16.8 mmol/L (22.0-26.0); BG METHEMOGLOBIN 0.4 % (0.0-1.5); BG OXYGEN SATURATION 99.2 % (92.0-98.5); BG OXYHEMOGLOBIN 98.4 % (94.0-97.0); BG PCO2 40.1 mmHg (35.0-45.0); BG PH 7.241 (7.350-7.450); BG PO2 176.1 mmHg (75.0-100.0); BG SAMPLE SITE RIGHT RADIAL; BG TIDAL VOLUME(mL) 500 mL; BG TOTAL HEMOGLOBIN 7.9 g/dL (12.0-18.0); BG VENT MODE VENT - A/C; BG VENT RATE 18 set
[2017-12-18] MEDS: FUROSEMIDE 40MG/4ML VIAL IVP SCH (08:44)
[2017-12-18] MEDS: PANTOPRAZOLE SODIUM 40 MG/VIAL IV SCH (08:44)
[2017-12-18] MEDS ORDERED: PIPERACILLIN/TAZ 3.375G PREMIX 50 ML IV SCH (08:45)
[2017-12-18] MEDS ORDERED: SODIUM BICARBONATE 8.4% 1 MEQ/ML 50ML SYR IV NR (08:45)
[2017-12-18] MEDS: METOPROLOL TARTRATE 50MG TABLET PO SCH ×2 (08:45→20:56)
[2017-12-18] MEDS: AMLODIPINE 5MG TABLET PO SCH ×2 (09:00→16:42)
[2017-12-18 09:31] LABS: PLATELET ESTIMATE NORMAL
[2017-12-18] MEDS: PIPERACILLIN/TAZ 2.25G PREMIX 50 ML IV SCH ×2 (10:09→17:36)
[2017-12-18] MEDS ORDERED: LIDOCAINE HCL 1% 10 MG/ML 10ML VIAL ONE (10:36)
[2017-12-18] MEDS ORDERED: VANCOMYCIN 2,000 MG in DEXT 5% WATER 500 ML IV SCH (11:00)
[2017-12-18 12:01] LABS: INR 1.3; PARTIAL THROMBOPLASTIN TIME 30.6 sec (23.4-31.0); PROTHROMBIN TIME 13.4 sec (9.1-11.1)
[2017-12-18 13:17] LABS: CLARITY URINE CLEAR (CLEAR); COLOR URINE YELLOW (YELLOW); KETONES URINE NEGATIVE (NEGATIVE); LEUKOCYTE ESTERASE URINE TRACE (NEGATIVE); NITRITE URINE NEGATIVE (NEGATIVE); OCCULT BLOOD URINE 2+ (NEGATIVE); PROTEIN URINE 3+ (NEGATIVE); SPECIFIC GRAVITY URINE 1.013 (1.005-1.030); UROBILINOGEN URINE 0.2 E.U./dL (0.2-1.0)
[2017-12-18] MEDS ORDERED: CEFEPIME 2,000 MG in DEXTROSE 5% WATER 50 ML IV SCH (16:00)
[2017-12-18] MEDS: ENOXAPARIN 40MG/0.4ML SYR SUBCUT SCH (16:40)
[2017-12-18] MEDS: MONTELUKAST SODIUM 10MG TABLET PO SCH (16:45)
[2017-12-19] VITALS (71 sets, daily range): BP systolic 126–181; BP diastolic 53–101
[2017-12-19] MEDS: PIPERACILLIN/TAZ 2.25G PREMIX 50 ML IV SCH ×3 (01:55→18:08)
[2017-12-19] MEDS: IPRATROPIUM/ALBUTEROL 0.5-3(2.5)MG/3ML NEB HHN SCH ×3 (02:45→19:58)
[2017-12-19] MEDS: VERAPAMIL HCL 80 MG TABLET PO SCH ×4 (06:00→21:27)
[2017-12-19] MEDS: PROPOFOL 10MG/ML 100ML 100 ML IV PRN ×2 (06:03→15:58)
[2017-12-19] MEDS: ISOSORB DINIT/HYDRALAZINE HCL 20/37.5MG TABLET PO SCH ×3 (06:04→21:26)
[2017-12-19] MEDS: BLOOD SUGAR DIAGNOSTIC STRIP TEST SCH ×4 (07:00→21:27)
[2017-12-19] MEDS: INSULIN LISPRO 100 UNITS/ML SUBCUT SCH ×4 (07:00→21:00)
[2017-12-19] MEDS: ENALAPRIL 2.5MG/2ML VIAL 2ML IV SCH ×3 (07:00→17:51)
[2017-12-19] MEDS: AMLODIPINE 5MG TABLET PO SCH ×2 (08:12→17:50)
[2017-12-19] MEDS: PANTOPRAZOLE SODIUM 40 MG/VIAL IV SCH (08:13)
[2017-12-19] MEDS: METOPROLOL TARTRATE 50MG TABLET PO SCH ×2 (08:14→21:26)
[2017-12-19 09:12] LABS: BG BASE EXCESS -5.2 mmol/L (-2.0-2.0); BG CARBOXYHEMOGLOBIN 0.8 % (0.5-1.5); BG DEOXYHEMOGLOBIN 4.4 % (0.0-5.0); BG FRACTION INSPIRED OXYGEN 50; BG HCO3 ACT 18.4 mmol/L (22.0-26.0); BG METHEMOGLOBIN 0.3 % (0.0-1.5); BG OXYGEN SATURATION 95.6 % (92.0-98.5); BG OXYHEMOGLOBIN 94.5 % (94.0-97.0); BG PCO2 27.9 mmHg (35.0-45.0); BG PH 7.436 (7.350-7.450); BG SAMPLE SITE RIGHT RADIAL; BG TIDAL VOLUME(mL) 500 mL; BG TOTAL HEMOGLOBIN 7.4 g/dL (12.0-18.0); BG VENT MODE VENT - A/C; BG VENT RATE 20 set
[2017-12-19] MEDS ORDERED: VANCOMYCIN 1250MG in DEXTROSE 5% WATER 250ML IV SCH (11:00)
[2017-12-19 12:17] LABS: BASOPHILS % 0.6 % (0.0-2.0); EOSINOPHILS % 1.2 % (0.0-5.0); HEMATOCRIT. 21.8 % (36.0-48.0); HEMOGLOBIN. 7.2 g/dL (12.0-16.0); LYMPHOCYTES % 9.2 % (20.0-50.0); MEAN CORPUSCULAR HEMOGLOBIN 27.3 pg (28.0-32.0); MEAN CORPUSCULAR VOLUME 82.1 fL (81.0-99.0); MEAN PLATELET VOLUME 10.9 fl (7.4-10.4); MONOCYTES % 10.5 % (2.0-8.0); NEUTROPHILS % 78.5 % (40.0-76.0); PLATELET 138 x1000/uL (130-400); RED BLOOD CELL COUNT 2.66 mill/uL (4.2-5.4); RED CELL DISTRIBUTION WIDTH 16.4 % (11.6-14.6)
[2017-12-19] MEDS: ENOXAPARIN 40MG/0.4ML SYR SUBCUT SCH (17:49)
[2017-12-19] MEDS: MONTELUKAST SODIUM 10MG TABLET PO SCH (17:50)
[2017-12-19] MEDS ORDERED: PROPOFOL 10MG/ML 100ML 100 ML IV PRN ×2 (20:15→20:45)
[2017-12-20] VITALS (36 sets, daily range): BP systolic 110–203; BP diastolic 48–96
[2017-12-20] MEDS: ENALAPRIL 2.5MG/2ML VIAL 2ML IV SCH ×4 (00:31→18:57)
[2017-12-20 01:38] LABS: BG BASE EXCESS -5.3 mmol/L (-2.0-2.0); BG CARBOXYHEMOGLOBIN 0.3 % (0.5-1.5); BG DEOXYHEMOGLOBIN 5.6 % (0.0-5.0); BG FRACTION INSPIRED OXYGEN 100; BG HCO3 ACT 19.5 mmol/L (22.0-26.0); BG METHEMOGLOBIN 0.3 % (0.0-1.5); BG OXYGEN SATURATION 94.4 % (92.0-98.5); BG OXYHEMOGLOBIN 93.8 % (94.0-97.0); BG PCO2 34.9 mmHg (35.0-45.0); BG PH 7.365 (7.350-7.450); BG PO2 79.6 mmHg (75.0-100.0); BG SAMPLE SITE RIGHT RADIAL; BG TOTAL HEMOGLOBIN 8.1 g/dL (12.0-18.0); BG VENT MODE MASK - NRB
[2017-12-20] MEDS: IPRATROPIUM/ALBUTEROL 0.5-3(2.5)MG/3ML NEB HHN SCH ×4 (02:01→20:25)
[2017-12-20] MEDS: PIPERACILLIN/TAZ 2.25G PREMIX 50 ML IV SCH ×3 (02:14→17:19)
[2017-12-20 04:57] LABS: BASOPHILS % 0.3 % (0.0-2.0); EOSINOPHILS % 1.1 % (0.0-5.0); HEMATOCRIT. 22.8 % (36.0-48.0); HEMOGLOBIN. 7.3 g/dL (12.0-16.0); LYMPHOCYTES % 8.8 % (20.0-50.0); MEAN CORPUSCULAR HEMOGLOBIN 26.3 pg (28.0-32.0); MEAN CORPUSCULAR VOLUME 82.4 fL (81.0-99.0); MEAN PLATELET VOLUME 11.1 fl (7.4-10.4); MONOCYTES % 9.4 % (2.0-8.0); NEUTROPHILS % 80.4 % (40.0-76.0); PLATELET 144 x1000/uL (130-400); RED BLOOD CELL COUNT 2.77 mill/uL (4.2-5.4); RED CELL DISTRIBUTION WIDTH 16.9 % (11.6-14.6)
[2017-12-20] MEDS: ISOSORB DINIT/HYDRALAZINE HCL 20/37.5MG TABLET PO SCH ×3 (06:00→22:34)
[2017-12-20] MEDS: VERAPAMIL HCL 80 MG TABLET PO SCH ×3 (06:00→22:33)
[2017-12-20] MEDS: INSULIN LISPRO 100 UNITS/ML SUBCUT SCH ×4 (06:13→22:41)
[2017-12-20] MEDS: BLOOD SUGAR DIAGNOSTIC STRIP TEST SCH ×4 (06:14→22:41)
[2017-12-20] MEDS: PANTOPRAZOLE SODIUM 40 MG/VIAL IV SCH (08:20)
[2017-12-20] MEDS: HYDRALAZINE 20MG/ML VIAL IV PRN (08:21)
[2017-12-20 11:06] LABS: BG BASE EXCESS -3.3 mmol/L (-2.0-2.0); BG CARBOXYHEMOGLOBIN 0.3 % (0.5-1.5); BG FRACTION INSPIRED OXYGEN 100; BG HCO3 ACT 20.9 mmol/L (22.0-26.0); BG METHEMOGLOBIN 0.2 % (0.0-1.5); BG OXYHEMOGLOBIN 95.5 % (94.0-97.0); BG PCO2 33.9 mmHg (35.0-45.0); BG PH 7.408 (7.350-7.450); BG PO2 85.3 mmHg (75.0-100.0); BG SAMPLE SITE RIGHT RADIAL; BG TOTAL HEMOGLOBIN 8.3 g/dL (12.0-18.0); BG VENT MODE MASK - NRB
[2017-12-20] MEDS: METOPROLOL TARTRATE 50MG TABLET PO SCH ×2 (11:53→22:34)
[2017-12-20] MEDS: AMLODIPINE 5MG TABLET PO SCH ×2 (11:53→17:20)
[2017-12-20] MEDS: NITROGLYCERIN OINT 1GM/INCH UDPKT TD SCH ×2 (12:54→18:55)
[2017-12-20] MEDS: ENOXAPARIN 40MG/0.4ML SYR SUBCUT SCH (16:00)
[2017-12-20 16:33] LABS: BG BASE EXCESS -2.7 mmol/L (-2.0-2.0); BG CARBOXYHEMOGLOBIN 0.3 % (0.5-1.5); BG FRACTION INSPIRED OXYGEN 100; BG HCO3 ACT 21.8 mmol/L (22.0-26.0); BG METHEMOGLOBIN 0.4 % (0.0-1.5); BG OXYHEMOGLOBIN 97.3 % (94.0-97.0); BG PCO2 36.3 mmHg (35.0-45.0); BG PH 7.397 (7.350-7.450); BG PO2 111.5 mmHg (75.0-100.0); BG SAMPLE SITE RIGHT RADIAL; BG VENT MODE MASK - NRB
[2017-12-20] MEDS: MONTELUKAST SODIUM 10MG TABLET PO SCH (17:19)
[2017-12-20] MEDS: ACETAMINOPHEN 325MG TABLET PO PRN (23:08)
[2017-12-21] VITALS (64 sets, daily range): BP systolic 52–216; BP diastolic 32–186
[2017-12-21] MEDS: IPRATROPIUM/ALBUTEROL 0.5-3(2.5)MG/3ML NEB HHN SCH ×4 (00:35→20:33)
[2017-12-21] MEDS: PIPERACILLIN/TAZ 2.25G PREMIX 50 ML IV SCH ×3 (01:39→17:15)
[2017-12-21] MEDS: BLOOD SUGAR DIAGNOSTIC STRIP TEST SCH ×4 (06:28→21:31)
[2017-12-21] MEDS: INSULIN LISPRO 100 UNITS/ML SUBCUT SCH ×4 (06:28→21:00)
[2017-12-21] MEDS: ENALAPRIL 2.5MG/2ML VIAL 2ML IV SCH ×4 (06:30→17:16)
[2017-12-21] MEDS: NITROGLYCERIN OINT 1GM/INCH UDPKT TD SCH ×4 (06:38→17:15)
[2017-12-21] MEDS: ISOSORB DINIT/HYDRALAZINE HCL 20/37.5MG TABLET PO SCH ×3 (06:51→21:32)
[2017-12-21] MEDS: VERAPAMIL HCL 80 MG TABLET PO SCH ×3 (06:52→21:32)
[2017-12-21 07:04] LABS: BASOPHILS % 0.2 % (0.0-2.0); HEMATOCRIT. 21.8 % (36.0-48.0); HEMOGLOBIN. 7.2 g/dL (12.0-16.0); LYMPHOCYTES % 7.5 % (20.0-50.0); MEAN CORPUSCULAR HEMOGLOBIN 27.3 pg (28.0-32.0); MEAN CORPUSCULAR VOLUME 82.8 fL (81.0-99.0); MEAN PLATELET VOLUME 11.5 fl (7.4-10.4); MONOCYTES % 10.4 % (2.0-8.0); NEUTROPHILS % 80.9 % (40.0-76.0); PLATELET 120 x1000/uL (130-400); RED BLOOD CELL COUNT 2.63 mill/uL (4.2-5.4); RED CELL DISTRIBUTION WIDTH 17.1 % (11.6-14.6)
[2017-12-21] MEDS: AMLODIPINE 5MG TABLET PO SCH ×2 (09:00→17:14)
[2017-12-21] MEDS: PANTOPRAZOLE SODIUM 40 MG/VIAL IV SCH (09:00)
[2017-12-21] MEDS ORDERED: HEPARIN SODIUM 1,000 UNIT/1ML VIAL IV NR (09:15)
[2017-12-21] MEDS: ACETAMINOPHEN 325MG TABLET PO PRN ×2 (09:40→17:16)
[2017-12-21 11:35] LABS: BG BASE EXCESS -5.6 mmol/L (-2.0-2.0); BG BILEVEL POS AIRWAY PRESSURE 15/5; BG CARBOXYHEMOGLOBIN 0.4 % (0.5-1.5); BG DEOXYHEMOGLOBIN 8.1 % (0.0-5.0); BG FRACTION INSPIRED OXYGEN 50; BG HCO3 ACT 19.5 mmol/L (22.0-26.0); BG METHEMOGLOBIN 0.2 % (0.0-1.5); BG OXYGEN SATURATION 91.9 % (92.0-98.5); BG OXYHEMOGLOBIN 91.3 % (94.0-97.0); BG PCO2 36.5 mmHg (35.0-45.0); BG PH 7.346 (7.350-7.450); BG PO2 67.4 mmHg (75.0-100.0); BG SAMPLE SITE RIGHT RADIAL; BG TOTAL HEMOGLOBIN 7.7 g/dL (12.0-18.0); BG VENT MODE MASK - BIPAP; BG VENT RATE 14 set
[2017-12-21] MEDS: METOPROLOL TARTRATE 50MG TABLET PO SCH ×2 (12:09→21:31)
[2017-12-21] MEDS ORDERED: VANCOMYCIN 1500MG in DEXTROSE 5% WATER 250ML IV NR (14:00)
[2017-12-21] MEDS: MONTELUKAST SODIUM 10MG TABLET PO SCH (17:14)
[2017-12-21] MEDS: ENOXAPARIN 40MG/0.4ML SYR SUBCUT SCH (17:14)
[2017-12-22] VITALS (29 sets, daily range): BP systolic 105–199; BP diastolic 27–104
[2017-12-22] MEDS: NITROGLYCERIN OINT 1GM/INCH UDPKT TD SCH ×4 (00:21→18:00)
[2017-12-22] MEDS: ENALAPRIL 2.5MG/2ML VIAL 2ML IV SCH ×4 (00:26→19:56)
[2017-12-22] MEDS: IPRATROPIUM/ALBUTEROL 0.5-3(2.5)MG/3ML NEB HHN SCH ×4 (02:36→21:13)
[2017-12-22] MEDS: PIPERACILLIN/TAZ 2.25G PREMIX 50 ML IV SCH ×3 (02:47→20:33)
[2017-12-22] MEDS: ISOSORB DINIT/HYDRALAZINE HCL 20/37.5MG TABLET PO SCH (05:55)
[2017-12-22] MEDS: VERAPAMIL HCL 80 MG TABLET PO SCH ×3 (05:55→22:43)
[2017-12-22] MEDS: INSULIN LISPRO 100 UNITS/ML SUBCUT SCH ×4 (06:31→21:00)
[2017-12-22] MEDS: BLOOD SUGAR DIAGNOSTIC STRIP TEST SCH ×4 (06:31→21:00)
[2017-12-22 06:33] LABS: BASOPHILS % 0.2 % (0.0-2.0); EOSINOPHILS % 0.9 % (0.0-5.0); HEMATOCRIT. 22.3 % (36.0-48.0); HEMOGLOBIN. 7.1 g/dL (12.0-16.0); LYMPHOCYTES % 8.8 % (20.0-50.0); MEAN CORPUSCULAR HEMOGLOBIN 26.8 pg (28.0-32.0); MEAN CORPUSCULAR VOLUME 84.4 fL (81.0-99.0); MEAN PLATELET VOLUME 12.3 fl (7.4-10.4); NEUTROPHILS % 79.1 % (40.0-76.0); PLATELET 114 x1000/uL (130-400); RED BLOOD CELL COUNT 2.65 mill/uL (4.2-5.4); RED CELL DISTRIBUTION WIDTH 16.9 % (11.6-14.6)
[2017-12-22] MEDS: PANTOPRAZOLE SODIUM 40 MG/VIAL IV SCH (08:48)
[2017-12-22] MEDS: METOPROLOL TARTRATE 50MG TABLET PO SCH ×2 (08:48→22:42)
[2017-12-22] MEDS: AMLODIPINE 5MG TABLET PO SCH (08:48)
[2017-12-22] MEDS: CLONIDINE HCL 0.3MG/24HR PATCH TD SCH (08:49)
[2017-12-22] MEDS: HYDRALAZINE HCL 100MG TABLET PO SCH ×2 (15:19→22:43)
[2017-12-22] MEDS: ENOXAPARIN 40MG/0.4ML SYR SUBCUT SCH (16:16)
[2017-12-22] MEDS: MONTELUKAST SODIUM 10MG TABLET PO SCH (17:32)
[2017-12-22] MEDS: ACETAMINOPHEN 325MG TABLET PO PRN (17:43)
[2017-12-23] VITALS (12 sets, daily range): BP systolic 127–167; BP diastolic 52–84
[2017-12-23] MEDS: NITROGLYCERIN OINT 1GM/INCH UDPKT TD SCH ×4 (01:42→18:40)
[2017-12-23] MEDS: PIPERACILLIN/TAZ 2.25G PREMIX 50 ML IV SCH ×3 (01:42→18:39)
[2017-12-23] MEDS: ENALAPRIL 2.5MG/2ML VIAL 2ML IV SCH ×4 (01:42→18:40)
[2017-12-23] MEDS: IPRATROPIUM/ALBUTEROL 0.5-3(2.5)MG/3ML NEB HHN SCH ×4 (02:11→20:27)
[2017-12-23] MEDS: VERAPAMIL HCL 80 MG TABLET PO SCH ×3 (05:50→21:59)
[2017-12-23] MEDS: HYDRALAZINE HCL 100MG TABLET PO SCH ×3 (05:50→22:00)
[2017-12-23] MEDS: BLOOD SUGAR DIAGNOSTIC STRIP TEST SCH ×4 (07:30→21:00)
[2017-12-23] MEDS: INSULIN LISPRO 100 UNITS/ML SUBCUT SCH ×4 (08:00→21:00)
[2017-12-23] MEDS: METOPROLOL TARTRATE 50MG TABLET PO SCH ×3 (09:00→22:00)
[2017-12-23] MEDS: PANTOPRAZOLE SODIUM 40 MG/VIAL IV SCH (09:33)
[2017-12-23 11:20] LABS: MEAN CORPUSCULAR HEMOGLOBIN 26.6 pg (28.0-32.0); MEAN CORPUSCULAR VOLUME 82.8 fL (81.0-99.0); MEAN PLATELET VOLUME 12.4 fl (7.4-10.4); PLATELET 115 x1000/uL (130-400); RED BLOOD CELL COUNT 2.58 mill/uL (4.2-5.4); RED CELL DISTRIBUTION WIDTH 17.4 % (11.6-14.6)
[2017-12-23 11:28] LABS: HEMATOCRIT. 21.3 % (36.0-48.0); HEMOGLOBIN. 6.9 g/dL (12.0-16.0)
[2017-12-23 13:33] LABS: PLATELET ESTIMATE SLIGHTLY DECREASED
[2017-12-23] MEDS: ENOXAPARIN 40MG/0.4ML SYR SUBCUT SCH (16:06)
[2017-12-23] MEDS: MONTELUKAST SODIUM 10MG TABLET PO SCH (18:41)
[2017-12-24] VITALS (21 sets, daily range): BP systolic 129–169; BP diastolic 63–78
[2017-12-24] MEDS: IPRATROPIUM/ALBUTEROL 0.5-3(2.5)MG/3ML NEB HHN SCH ×4 (00:22→20:07)
[2017-12-24] MEDS: NITROGLYCERIN OINT 1GM/INCH UDPKT TD SCH ×2 (01:29→06:24)
[2017-12-24] MEDS: ENALAPRIL 2.5MG/2ML VIAL 2ML IV SCH ×4 (01:30→17:23)
[2017-12-24] MEDS: PIPERACILLIN/TAZ 2.25G PREMIX 50 ML IV SCH ×3 (01:53→17:23)
[2017-12-24] MEDS: VERAPAMIL HCL 80 MG TABLET PO SCH ×3 (06:24→21:40)
[2017-12-24] MEDS: HYDRALAZINE HCL 100MG TABLET PO SCH ×3 (06:25→21:40)
[2017-12-24 07:31] LABS: BASOPHILS % 0.3 % (0.0-2.0); EOSINOPHILS % 0.9 % (0.0-5.0); HEMATOCRIT. 22.3 % (36.0-48.0); HEMOGLOBIN. 7.4 g/dL (12.0-16.0); LYMPHOCYTES % 7.5 % (20.0-50.0); MEAN CORPUSCULAR HEMOGLOBIN 27.4 pg (28.0-32.0); MEAN CORPUSCULAR VOLUME 83.1 fL (81.0-99.0); MEAN PLATELET VOLUME 12.5 fl (7.4-10.4); MONOCYTES % 11.7 % (2.0-8.0); NEUTROPHILS % 79.6 % (40.0-76.0); PLATELET 112 x1000/uL (130-400); RED BLOOD CELL COUNT 2.69 mill/uL (4.2-5.4); RED CELL DISTRIBUTION WIDTH 16.7 % (11.6-14.6)
[2017-12-24] MEDS: INSULIN LISPRO 100 UNITS/ML SUBCUT SCH ×4 (07:38→21:00)
[2017-12-24] MEDS: BLOOD SUGAR DIAGNOSTIC STRIP TEST SCH ×4 (07:38→21:00)
[2017-12-24] MEDS: PANTOPRAZOLE SODIUM 40 MG/VIAL IV SCH (08:04)
[2017-12-24] MEDS: METOPROLOL TARTRATE 50MG TABLET PO SCH ×2 (08:05→21:41)
[2017-12-24 09:41] LABS: INR 1.3; PROTHROMBIN TIME 12.9 sec (9.1-11.1)
[2017-12-24] MEDS: MONTELUKAST SODIUM 10MG TABLET PO SCH (17:23)
[2017-12-24] MEDS: ACETAMINOPHEN 325MG TABLET PO PRN (21:45)
[2017-12-25] VITALS (12 sets, daily range): BP systolic 137–169; BP diastolic 58–91
[2017-12-25] MEDS ORDERED: NITROGLYCERIN OINT 1GM/INCH UDPKT TD ONE
[2017-12-25] MEDS ORDERED: LIDOCAINE HCL 4% CREAM 76GM TUBE TP PRN ×2 (00:15)
[2017-12-25] MEDS: ENALAPRIL 2.5MG/2ML VIAL 2ML IV SCH ×4 (00:42→17:09)
[2017-12-25] MEDS: NITROGLYCERIN OINT 1GM/INCH UDPKT TD SCH ×4 (00:43→16:52)
[2017-12-25] MEDS: IPRATROPIUM/ALBUTEROL 0.5-3(2.5)MG/3ML NEB HHN SCH ×4 (00:56→20:46)
[2017-12-25] MEDS: PIPERACILLIN/TAZ 2.25G PREMIX 50 ML IV SCH ×3 (05:59→15:57)
[2017-12-25] MEDS: VERAPAMIL HCL 80 MG TABLET PO SCH ×3 (06:00→21:03)
[2017-12-25] MEDS: ACETAMINOPHEN 325MG TABLET PO PRN (06:00)
[2017-12-25] MEDS: HYDRALAZINE HCL 100MG TABLET PO SCH ×3 (06:03→21:03)
[2017-12-25 07:19] LABS: HEMATOCRIT. 25.4 % (36.0-48.0); HEMOGLOBIN. 8.3 g/dL (12.0-16.0); MEAN CORPUSCULAR HEMOGLOBIN 27.1 pg (28.0-32.0); MEAN CORPUSCULAR VOLUME 83.4 fL (81.0-99.0); MEAN PLATELET VOLUME 12.2 fl (7.4-10.4); PLATELET 121 x1000/uL (130-400); RED BLOOD CELL COUNT 3.05 mill/uL (4.2-5.4); RED CELL DISTRIBUTION WIDTH 16.8 % (11.6-14.6)
[2017-12-25] MEDS: BLOOD SUGAR DIAGNOSTIC STRIP TEST SCH ×4 (07:26→20:56)
[2017-12-25] MEDS: INSULIN LISPRO 100 UNITS/ML SUBCUT SCH ×4 (08:00→20:56)
[2017-12-25] MEDS: PANTOPRAZOLE SODIUM 40 MG/VIAL IV SCH ×2 (09:00→14:36)
[2017-12-25] MEDS: METOPROLOL TARTRATE 50MG TABLET PO SCH ×2 (09:00→21:03)
[2017-12-25] MEDS ORDERED: HEPARIN SODIUM 1,000 UNIT/1ML VIAL IV NR (12:15)
[2017-12-25 15:25] LABS: HEPATITIS B SURFACE ANTIGEN NEGATIVE
[2017-12-25 15:53] LABS: HEPATITIS B CORE AB IGM NEGATIVE
[2017-12-25 15:54] LABS: HEPATITIS A AB IGM NEGATIVE (NEGATIVE)
[2017-12-25] MEDS: MONTELUKAST SODIUM 10MG TABLET PO SCH (16:52)
[2017-12-25 21:36] LABS: PLATELET ESTIMATE SLIGHTLY DECREASED
[2017-12-26] VITALS (12 sets, daily range): BP systolic 132–157; BP diastolic 55–77
[2017-12-26] MEDS ORDERED: PIPERACILLIN/TAZ 2.25G PREMIX 50 ML IV SCH
[2017-12-26] MEDS: ENALAPRIL 2.5MG/2ML VIAL 2ML IV SCH ×4 (00:15→17:57)
[2017-12-26] MEDS: IPRATROPIUM/ALBUTEROL 0.5-3(2.5)MG/3ML NEB HHN SCH ×4 (02:49→20:38)
[2017-12-26] MEDS: HYDRALAZINE HCL 100MG TABLET PO SCH ×3 (06:09→22:53)
[2017-12-26] MEDS: VERAPAMIL HCL 80 MG TABLET PO SCH ×3 (06:10→22:53)
[2017-12-26] MEDS: BLOOD SUGAR DIAGNOSTIC STRIP TEST SCH ×4 (07:27→20:38)
[2017-12-26] MEDS: INSULIN LISPRO 100 UNITS/ML SUBCUT SCH ×4 (07:36→21:00)
[2017-12-26] MEDS: METOPROLOL TARTRATE 50MG TABLET PO SCH ×2 (08:06→20:36)
[2017-12-26] MEDS: PANTOPRAZOLE SODIUM 40 MG/VIAL IV SCH (08:34)
[2017-12-26] MEDS: NITROGLYCERIN OINT 1GM/INCH UDPKT TD SCH ×3 (08:34→17:57)
[2017-12-26] MEDS: MONTELUKAST SODIUM 10MG TABLET PO SCH (17:57)
[2017-12-27] VITALS (11 sets, daily range): BP systolic 137–168; BP diastolic 58–73
[2017-12-27] MEDS: ENALAPRIL 2.5MG/2ML VIAL 2ML IV SCH ×4 (00:14→17:26)
[2017-12-27] MEDS: IPRATROPIUM/ALBUTEROL 0.5-3(2.5)MG/3ML NEB HHN SCH ×4 (01:05→21:04)
[2017-12-27] MEDS: HYDRALAZINE HCL 100MG TABLET PO SCH ×3 (05:47→21:07)
[2017-12-27] MEDS: VERAPAMIL HCL 80 MG TABLET PO SCH ×3 (05:48→21:07)
[2017-12-27] MEDS: INSULIN LISPRO 100 UNITS/ML SUBCUT SCH ×4 (08:00→20:14)
[2017-12-27] MEDS: PANTOPRAZOLE SODIUM 40 MG/VIAL IV SCH (08:01)
[2017-12-27] MEDS: ACETAMINOPHEN 325MG TABLET PO PRN (08:02)
[2017-12-27] MEDS: NITROGLYCERIN OINT 1GM/INCH UDPKT TD SCH ×3 (08:02→17:26)
[2017-12-27] MEDS: BLOOD SUGAR DIAGNOSTIC STRIP TEST SCH ×4 (08:03→20:14)
[2017-12-27] MEDS: METOPROLOL TARTRATE 50MG TABLET PO SCH ×2 (08:03→20:14)
[2017-12-27] MEDS: MONTELUKAST SODIUM 10MG TABLET PO SCH (17:26)
[2017-12-27] MEDS: ONDANSETRON HCL 4MG/2ML INJ IV PRN (21:07)
[2017-12-28] VITALS (12 sets, daily range): BP systolic 120–150; BP diastolic 45–100
[2017-12-28] MEDS: ENALAPRIL 2.5MG/2ML VIAL 2ML IV SCH ×4 (05:26→18:12)
[2017-12-28] MEDS: HYDRALAZINE HCL 100MG TABLET PO SCH ×3 (05:27→21:40)
[2017-12-28] MEDS: VERAPAMIL HCL 80 MG TABLET PO SCH ×3 (05:27→21:41)
[2017-12-28] MEDS: BLOOD SUGAR DIAGNOSTIC STRIP TEST SCH ×4 (07:30→21:00)
[2017-12-28] MEDS: INSULIN LISPRO 100 UNITS/ML SUBCUT SCH ×4 (08:00→21:00)
[2017-12-28] MEDS: IPRATROPIUM/ALBUTEROL 0.5-3(2.5)MG/3ML NEB HHN SCH ×3 (08:34→22:30)
[2017-12-28 09:09] LABS: BG BASE EXCESS -1.1 mmol/L (-2.0-2.0); BG CARBOXYHEMOGLOBIN 0.2 % (0.5-1.5); BG DEOXYHEMOGLOBIN 7.3 % (0.0-5.0); BG FRACTION INSPIRED OXYGEN 60; BG HCO3 ACT 26.2 mmol/L (22.0-26.0); BG METHEMOGLOBIN 0.2 % (0.0-1.5); BG OXYGEN SATURATION 92.7 % (92.0-98.5); BG OXYHEMOGLOBIN 92.3 % (94.0-97.0); BG PCO2 58.1 mmHg (35.0-45.0); BG PH 7.272 (7.350-7.450); BG PO2 74.9 mmHg (75.0-100.0); BG SAMPLE SITE RIGHT RADIAL; BG TOTAL HEMOGLOBIN 8.9 g/dL (12.0-18.0); BG VENT MODE MASK - SIMPLE
[2017-12-28] MEDS: NITROGLYCERIN OINT 1GM/INCH UDPKT TD SCH ×3 (10:07→18:22)
[2017-12-28] MEDS: METOPROLOL TARTRATE 50MG TABLET PO SCH ×2 (10:08→21:41)
[2017-12-28] MEDS: PANTOPRAZOLE SODIUM 40 MG/VIAL IV SCH (10:08)
[2017-12-28 11:54] LABS: BASOPHILS % 0.5 % (0.0-2.0); EOSINOPHILS % 0.6 % (0.0-5.0); HEMATOCRIT. 25.8 % (36.0-48.0); LYMPHOCYTES % 7.5 % (20.0-50.0); MEAN CORPUSCULAR HEMOGLOBIN 26.5 pg (28.0-32.0); MEAN CORPUSCULAR VOLUME 84.8 fL (81.0-99.0); MEAN PLATELET VOLUME 11.8 fl (7.4-10.4); MONOCYTES % 8.3 % (2.0-8.0); NEUTROPHILS % 83.1 % (40.0-76.0); PLATELET 143 x1000/uL (130-400); RED BLOOD CELL COUNT 3.04 mill/uL (4.2-5.4)
[2017-12-28 12:22] LABS: CHLORIDE 104 mEq/L (98-107)
[2017-12-28] MEDS ORDERED: HEPARIN SODIUM 1,000 UNIT/1ML VIAL IV NR (15:45)
[2017-12-28] MEDS: MONTELUKAST SODIUM 10MG TABLET PO SCH (17:00)
[2017-12-29] VITALS (10 sets, daily range): BP systolic 136–164; BP diastolic 53–96
[2017-12-29] MEDS: ENALAPRIL 2.5MG/2ML VIAL 2ML IV SCH ×4 (00:58→17:47)
[2017-12-29] MEDS: IPRATROPIUM/ALBUTEROL 0.5-3(2.5)MG/3ML NEB HHN SCH ×4 (01:20→20:41)
[2017-12-29] MEDS: HYDRALAZINE HCL 100MG TABLET PO SCH ×3 (06:04→21:17)
[2017-12-29] MEDS: VERAPAMIL HCL 80 MG TABLET PO SCH ×2 (06:04→17:43)
[2017-12-29] MEDS: BLOOD SUGAR DIAGNOSTIC STRIP TEST SCH ×4 (06:12→21:00)
[2017-12-29] MEDS: INSULIN LISPRO 100 UNITS/ML SUBCUT SCH ×4 (06:12→21:00)
[2017-12-29 07:31] LABS: BG BASE EXCESS 0.1 mmol/L (-2.0-2.0); BG CARBOXYHEMOGLOBIN 0.1 % (0.5-1.5); BG DEOXYHEMOGLOBIN 30.5 % (0.0-5.0); BG FRACTION INSPIRED OXYGEN 21; BG HCO3 ACT 26.9 mmol/L (22.0-26.0); BG METHEMOGLOBIN 0.3 % (0.0-1.5); BG OXYGEN SATURATION 69.4 % (92.0-98.5); BG OXYHEMOGLOBIN 69.1 % (94.0-97.0); BG PO2 36.2 mmHg (75.0-100.0); BG SAMPLE SITE RIGHT RADIAL; BG TOTAL HEMOGLOBIN 8.5 g/dL (12.0-18.0); BG VENT MODE ROOM AIR
[2017-12-29] MEDS: PANTOPRAZOLE SODIUM 40 MG/VIAL IV SCH (09:17)
[2017-12-29 09:18] LABS: BG CARBOXYHEMOGLOBIN 0.3 % (0.5-1.5); BG DEOXYHEMOGLOBIN 14.1 % (0.0-5.0); BG FRACTION INSPIRED OXYGEN 36; BG METHEMOGLOBIN 0.3 % (0.0-1.5); BG OXYGEN SATURATION 85.8 % (92.0-98.5); BG OXYHEMOGLOBIN 85.3 % (94.0-97.0); BG PCO2 59.5 mmHg (35.0-45.0); BG PH 7.306 (7.350-7.450); BG SAMPLE SITE RIGHT RADIAL; BG TOTAL HEMOGLOBIN 8.8 g/dL (12.0-18.0); BG VENT MODE NASAL CANNULA
[2017-12-29] MEDS: METOPROLOL TARTRATE 50MG TABLET PO SCH (09:18)
[2017-12-29] MEDS: NITROGLYCERIN OINT 1GM/INCH UDPKT TD SCH (09:18)
[2017-12-29 12:46] LABS: BG BASE EXCESS 1.1 mmol/L (-2.0-2.0); BG BILEVEL POS AIRWAY PRESSURE 15/5; BG CARBOXYHEMOGLOBIN 0.5 % (0.5-1.5); BG HCO3 ACT 27.9 mmol/L (22.0-26.0); BG METHEMOGLOBIN 0.2 % (0.0-1.5); BG OXYHEMOGLOBIN 93.3 % (94.0-97.0); BG PCO2 57.3 mmHg (35.0-45.0); BG PH 7.305 (7.350-7.450); BG PO2 73.6 mmHg (75.0-100.0); BG SAMPLE SITE RIGHT BRACHIAL; BG TOTAL HEMOGLOBIN 8.1 g/dL (12.0-18.0); BG VENT MODE MASK - BIPAP; BG VENT RATE 16 set
[2017-12-29] MEDS: LOSARTAN POTASSIUM 50 MG TABLET PO SCH (17:43)
[2017-12-29] MEDS: MONTELUKAST SODIUM 10MG TABLET PO SCH (17:43)
[2017-12-29] MEDS: METOPROLOL TARTRATE 25MG TABLET PO SCH (21:17)
[2017-12-30] VITALS (13 sets, daily range): BP systolic 146–176; BP diastolic 57–95
[2017-12-30] MEDS: ENALAPRIL 2.5MG/2ML VIAL 2ML IV SCH ×2 (00:07→05:36)
[2017-12-30] MEDS: IPRATROPIUM/ALBUTEROL 0.5-3(2.5)MG/3ML NEB HHN SCH ×4 (04:29→20:07)
[2017-12-30] MEDS: HYDRALAZINE HCL 100MG TABLET PO SCH ×3 (05:35→21:30)
[2017-12-30 05:42] LABS: HEMATOCRIT. 23.5 % (36.0-48.0); HEMOGLOBIN. 7.2 g/dL (12.0-16.0); LYMPHOCYTES % 7.5 % (20.0-50.0); MEAN CORPUSCULAR HEMOGLOBIN 26.5 pg (28.0-32.0); MEAN CORPUSCULAR VOLUME 86.6 fL (81.0-99.0); MEAN PLATELET VOLUME 11.5 fl (7.4-10.4); MONOCYTES % 9.3 % (2.0-8.0); NEUTROPHILS % 81.2 % (40.0-76.0); PLATELET 193 x1000/uL (130-400); RED BLOOD CELL COUNT 2.71 mill/uL (4.2-5.4); RED CELL DISTRIBUTION WIDTH 16.7 % (11.6-14.6)
[2017-12-30] MEDS: INSULIN LISPRO 100 UNITS/ML SUBCUT SCH ×4 (08:00→21:00)
[2017-12-30] MEDS: BLOOD SUGAR DIAGNOSTIC STRIP TEST SCH ×4 (08:05→21:31)
[2017-12-30 08:26] LABS: BG CARBOXYHEMOGLOBIN 0.8 % (0.5-1.5); BG DEOXYHEMOGLOBIN 9.8 % (0.0-5.0); BG FRACTION INSPIRED OXYGEN 32; BG HCO3 ACT 25.1 mmol/L (22.0-26.0); BG METHEMOGLOBIN 0.1 % (0.0-1.5); BG OXYGEN SATURATION 90.1 % (92.0-98.5); BG OXYHEMOGLOBIN 89.3 % (94.0-97.0); BG PCO2 49.1 mmHg (35.0-45.0); BG PH 7.327 (7.350-7.450); BG PO2 58.2 mmHg (75.0-100.0); BG SAMPLE SITE RIGHT RADIAL; BG TOTAL HEMOGLOBIN 8.3 g/dL (12.0-18.0); BG VENT MODE NASAL CANNULA
[2017-12-30] MEDS: PANTOPRAZOLE SODIUM 40 MG/VIAL IV SCH (08:31)
[2017-12-30] MEDS: METOPROLOL TARTRATE 25MG TABLET PO SCH (08:31)
[2017-12-30] MEDS: LOSARTAN POTASSIUM 50 MG TABLET PO SCH ×2 (08:32→19:06)
[2017-12-30] MEDS: VERAPAMIL HCL 80 MG TABLET PO SCH (08:32)
[2017-12-30] MEDS: CLONIDINE 0.1MG TABLET PO SCH ×2 (13:47→21:29)
[2017-12-30] MEDS ORDERED: HEPARIN SODIUM 1,000 UNIT/1ML VIAL IV NR (16:45)
[2017-12-30] MEDS: MONTELUKAST SODIUM 10MG TABLET PO SCH (19:06)
[2017-12-30] MEDS: METOPROLOL TARTRATE 50MG TABLET PO SCH (21:31)
[2017-12-30] MEDS: NIFEDIPINE XL 60MG TAB PO SCH (21:31)
[2017-12-31] VITALS (13 sets, daily range): BP systolic 146–175; BP diastolic 18–76
[2017-12-31] MEDS: IPRATROPIUM/ALBUTEROL 0.5-3(2.5)MG/3ML NEB HHN SCH ×4 (01:57→20:16)
[2017-12-31] MEDS: HYDRALAZINE HCL 100MG TABLET PO SCH ×3 (06:13→21:41)
[2017-12-31] MEDS: CLONIDINE 0.1MG TABLET PO SCH ×3 (06:14→21:41)
[2017-12-31] MEDS: BLOOD SUGAR DIAGNOSTIC STRIP TEST SCH ×4 (07:30→20:52)
[2017-12-31] MEDS: INSULIN LISPRO 100 UNITS/ML SUBCUT SCH ×4 (08:00→20:56)
[2017-12-31 08:16] LABS: BASOPHILS % 0.6 % (0.0-2.0); EOSINOPHILS % 1.3 % (0.0-5.0); HEMATOCRIT. 23.4 % (36.0-48.0); HEMOGLOBIN. 7.3 g/dL (12.0-16.0); LYMPHOCYTES % 7.8 % (20.0-50.0); MEAN CORPUSCULAR HEMOGLOBIN 26.1 pg (28.0-32.0); MEAN PLATELET VOLUME 11.4 fl (7.4-10.4); MONOCYTES % 8.6 % (2.0-8.0); NEUTROPHILS % 81.7 % (40.0-76.0); PLATELET 224 x1000/uL (130-400); RED BLOOD CELL COUNT 2.82 mill/uL (4.2-5.4); RED CELL DISTRIBUTION WIDTH 16.4 % (11.6-14.6)
[2017-12-31] MEDS: LOSARTAN POTASSIUM 50 MG TABLET PO SCH ×2 (08:47→17:19)
[2017-12-31] MEDS: NIFEDIPINE XL 60MG TAB PO SCH ×2 (08:48→20:51)
[2017-12-31] MEDS: METOPROLOL TARTRATE 50MG TABLET PO SCH ×2 (08:48→20:51)
[2017-12-31] MEDS: PANTOPRAZOLE SODIUM 40 MG/VIAL IV SCH (08:48)
[2017-12-31 13:49] LABS: TOTAL IRON BINDING CAPACITY 254 ug/dL (250-450)
[2017-12-31] MEDS: MONTELUKAST SODIUM 10MG TABLET PO SCH (17:19)
[2017-12-31] MEDS: MINOXIDIL 2.5MG TABLET PO SCH (20:51)
[2018-01-01] VITALS (16 sets, daily range): BP systolic 132–160; BP diastolic 55–74
[2018-01-01] MEDS: IPRATROPIUM/ALBUTEROL 0.5-3(2.5)MG/3ML NEB HHN SCH ×4 (01:46→20:47)
[2018-01-01] MEDS: HYDRALAZINE HCL 100MG TABLET PO SCH ×3 (05:42→22:51)
[2018-01-01] MEDS: ACETAMINOPHEN 325MG TABLET PO PRN ×2 (05:42→08:55)
[2018-01-01] MEDS: CLONIDINE 0.1MG TABLET PO SCH ×3 (05:43→22:51)
[2018-01-01] MEDS: BLOOD SUGAR DIAGNOSTIC STRIP TEST SCH ×4 (07:30→20:38)
[2018-01-01] MEDS: INSULIN LISPRO 100 UNITS/ML SUBCUT SCH ×4 (08:00→20:39)
[2018-01-01] MEDS: METOPROLOL TARTRATE 50MG TABLET PO SCH ×2 (08:53→21:30)
[2018-01-01] MEDS: PANTOPRAZOLE SODIUM 40 MG/VIAL IV SCH (08:53)
[2018-01-01] MEDS: MINOXIDIL 2.5MG TABLET PO SCH ×2 (08:53→21:31)
[2018-01-01] MEDS: LOSARTAN POTASSIUM 50 MG TABLET PO SCH ×2 (08:54→18:08)
[2018-01-01] MEDS: NIFEDIPINE XL 60MG TAB PO SCH ×2 (08:54→21:30)
[2018-01-01] MEDS: MONTELUKAST SODIUM 10MG TABLET PO SCH (18:08)
[2018-01-02] VITALS (12 sets, daily range): BP systolic 122–152; BP diastolic 50–63
[2018-01-02] MEDS: IPRATROPIUM/ALBUTEROL 0.5-3(2.5)MG/3ML NEB HHN SCH ×4 (00:55→20:00)
[2018-01-02] MEDS: HYDRALAZINE HCL 100MG TABLET PO SCH ×3 (06:27→21:30)
[2018-01-02] MEDS: CLONIDINE 0.1MG TABLET PO SCH ×3 (06:27→21:31)
[2018-01-02] MEDS: BLOOD SUGAR DIAGNOSTIC STRIP TEST SCH ×4 (06:57→21:21)
[2018-01-02] MEDS: INSULIN LISPRO 100 UNITS/ML SUBCUT SCH ×4 (08:00→21:00)
[2018-01-02 08:43] LABS: BASOPHILS % 0.8 % (0.0-2.0); EOSINOPHILS % 2.1 % (0.0-5.0); HEMATOCRIT. 23.6 % (36.0-48.0); HEMOGLOBIN. 7.6 g/dL (12.0-16.0); LYMPHOCYTES % 7.5 % (20.0-50.0); MEAN CORPUSCULAR HEMOGLOBIN 27.1 pg (28.0-32.0); MEAN CORPUSCULAR VOLUME 84.7 fL (81.0-99.0); MEAN PLATELET VOLUME 11.7 fl (7.4-10.4); MONOCYTES % 5.5 % (2.0-8.0); NEUTROPHILS % 84.1 % (40.0-76.0); PLATELET 268 x1000/uL (130-400); RED BLOOD CELL COUNT 2.79 mill/uL (4.2-5.4); RED CELL DISTRIBUTION WIDTH 16.9 % (11.6-14.6)
[2018-01-02] MEDS: LOSARTAN POTASSIUM 50 MG TABLET PO SCH ×3 (08:43→18:14)
[2018-01-02] MEDS: PANTOPRAZOLE SODIUM 40 MG/VIAL IV SCH (08:43)
[2018-01-02] MEDS: NIFEDIPINE XL 60MG TAB PO SCH ×2 (08:45→09:00)
[2018-01-02] MEDS: MINOXIDIL 2.5MG TABLET PO SCH ×3 (08:45→21:21)
[2018-01-02] MEDS: METOPROLOL TARTRATE 50MG TABLET PO SCH ×3 (08:45→21:20)
[2018-01-02 09:15] LABS: PHOSPHORUS 4.5 mg/dL (2.5-4.9)
[2018-01-02] MEDS ORDERED: FUROSEMIDE 40MG/4ML VIAL IVP NR (12:00)
[2018-01-02] MEDS: ONDANSETRON HCL 4MG/2ML INJ IV PRN (16:14)
[2018-01-02] MEDS: MONTELUKAST SODIUM 10MG TABLET PO SCH (18:14)
[2018-01-02] MEDS ORDERED: NIFEDIPINE XL 90MG TAB PO SCH (21:00)
[2018-01-03] VITALS (12 sets, daily range): BP systolic 124–154; BP diastolic 43–63
[2018-01-03] MEDS: IPRATROPIUM/ALBUTEROL 0.5-3(2.5)MG/3ML NEB HHN SCH ×4 (01:51→20:20)
[2018-01-03] MEDS: BLOOD SUGAR DIAGNOSTIC STRIP TEST SCH ×4 (06:11→21:12)
[2018-01-03] MEDS: HYDRALAZINE HCL 100MG TABLET PO SCH ×3 (06:11→21:13)
[2018-01-03] MEDS: CLONIDINE 0.1MG TABLET PO SCH (06:11)
[2018-01-03] MEDS: INSULIN LISPRO 100 UNITS/ML SUBCUT SCH ×4 (07:35→21:00)
[2018-01-03 07:43] LABS: HEMOGLOBIN. 7.7 g/dL (12.0-16.0); MEAN CORPUSCULAR VOLUME 83.7 fL (81.0-99.0); MEAN PLATELET VOLUME 11.2 fl (7.4-10.4); PLATELET 290 x1000/uL (130-400); RED BLOOD CELL COUNT 2.87 mill/uL (4.2-5.4); RED CELL DISTRIBUTION WIDTH 16.9 % (11.6-14.6)
[2018-01-03] MEDS: MINOXIDIL 2.5MG TABLET PO SCH ×2 (08:42→21:12)
[2018-01-03] MEDS: METOPROLOL TARTRATE 50MG TABLET PO SCH ×2 (08:42→21:13)
[2018-01-03] MEDS: NIFEDIPINE XL 60MG TAB PO SCH ×2 (08:42→21:12)
[2018-01-03] MEDS: LOSARTAN POTASSIUM 50 MG TABLET PO SCH ×2 (08:42→17:15)
[2018-01-03] MEDS: PANTOPRAZOLE SODIUM 40 MG/VIAL IV SCH (10:19)
[2018-01-03] MEDS: FUROSEMIDE 40MG/4ML VIAL IVP SCH (13:26)
[2018-01-03] MEDS: CLONIDINE 0.2MG TABLET PO SCH ×2 (13:27→21:13)
[2018-01-03] MEDS: MONTELUKAST SODIUM 10MG TABLET PO SCH (17:15)
[2018-01-04] VITALS (12 sets, daily range): BP systolic 100–146; BP diastolic 30–69
[2018-01-04] MEDS: IPRATROPIUM/ALBUTEROL 0.5-3(2.5)MG/3ML NEB HHN SCH ×3 (02:03→21:22)
[2018-01-04] MEDS: HYDRALAZINE HCL 100MG TABLET PO SCH ×3 (06:19→21:57)
[2018-01-04] MEDS: CLONIDINE 0.2MG TABLET PO SCH ×3 (06:19→21:57)
[2018-01-04 06:43] LABS: BASOPHILS % 0.9 % (0.0-2.0); EOSINOPHILS % 1.2 % (0.0-5.0); HEMATOCRIT. 23.6 % (36.0-48.0); HEMOGLOBIN. 7.6 g/dL (12.0-16.0); LYMPHOCYTES % 8.2 % (20.0-50.0); MEAN CORPUSCULAR HEMOGLOBIN 26.8 pg (28.0-32.0); MEAN PLATELET VOLUME 11.2 fl (7.4-10.4); MONOCYTES % 6.4 % (2.0-8.0); NEUTROPHILS % 83.3 % (40.0-76.0); PLATELET 296 x1000/uL (130-400); RED BLOOD CELL COUNT 2.84 mill/uL (4.2-5.4); RED CELL DISTRIBUTION WIDTH 16.7 % (11.6-14.6)
[2018-01-04] MEDS: BLOOD SUGAR DIAGNOSTIC STRIP TEST SCH ×4 (07:27→21:57)
[2018-01-04] MEDS: INSULIN LISPRO 100 UNITS/ML SUBCUT SCH ×4 (07:27→21:00)
[2018-01-04] MEDS: FUROSEMIDE 40MG/4ML VIAL IVP SCH (08:25)
[2018-01-04] MEDS: PANTOPRAZOLE SODIUM 40 MG/VIAL IV SCH (08:25)
[2018-01-04] MEDS: METOPROLOL TARTRATE 50MG TABLET PO SCH ×2 (08:26→21:57)
[2018-01-04] MEDS: LOSARTAN POTASSIUM 50 MG TABLET PO SCH ×2 (08:26→17:10)
[2018-01-04] MEDS: NIFEDIPINE XL 60MG TAB PO SCH ×2 (08:26→21:56)
[2018-01-04] MEDS: MINOXIDIL 2.5MG TABLET PO SCH ×2 (08:26→21:57)
[2018-01-04 13:44] LABS: PLATELET ESTIMATE NORMAL
[2018-01-04] MEDS ORDERED: LORAZEPAM 2MG/ML CPJ IV SCH (14:45)
[2018-01-04] MEDS: MONTELUKAST SODIUM 10MG TABLET PO SCH (17:10)
[2018-01-04] MEDS: EPOETIN ALFA 4000UNITS/ML VIAL SUBCUT SCH (21:57)
[2018-01-05] VITALS (34 sets, daily range): BP systolic 107–154; BP diastolic 39–84
[2018-01-05] MEDS: IPRATROPIUM/ALBUTEROL 0.5-3(2.5)MG/3ML NEB HHN SCH ×4 (01:08→20:01)
[2018-01-05] MEDS: HYDRALAZINE HCL 100MG TABLET PO SCH ×2 (05:53→14:00)
[2018-01-05] MEDS: CLONIDINE 0.2MG TABLET PO SCH ×2 (05:53→14:00)
[2018-01-05] MEDS ORDERED: ALBUMIN HUMAN 12.5G/250ML (5%) IV ONE (06:10)
[2018-01-05] MEDS ORDERED: ALBUMIN HUMAN 12.5GM/50ML (25%) IV ONE (06:12)
[2018-01-05 07:40] LABS: BG BASE EXCESS 2.4 mmol/L (-2.0-2.0); BG CARBOXYHEMOGLOBIN 0.3 % (0.5-1.5); BG DEOXYHEMOGLOBIN 13.4 % (0.0-5.0); BG HCO3 ACT 26.4 mmol/L (22.0-26.0); BG METHEMOGLOBIN 0.8 % (0.0-1.5); BG OXYGEN SATURATION 86.5 % (92.0-98.5); BG OXYHEMOGLOBIN 85.5 % (94.0-97.0); BG PCO2 38.1 mmHg (35.0-45.0); BG PH 7.459 (7.350-7.450); BG PO2 50.4 mmHg (75.0-100.0); BG SAMPLE SITE RIGHT BRACHIAL; BG TOTAL HEMOGLOBIN 7.3 g/dL (12.0-18.0); BG VENT MODE NASAL CANNULA
[2018-01-05] MEDS: INSULIN LISPRO 100 UNITS/ML SUBCUT SCH ×4 (08:00→21:00)
[2018-01-05] MEDS: BLOOD SUGAR DIAGNOSTIC STRIP TEST SCH ×4 (08:00→21:00)
[2018-01-05] MEDS: LOSARTAN POTASSIUM 50 MG TABLET PO SCH ×2 (09:00→17:00)
[2018-01-05] MEDS: NIFEDIPINE XL 60MG TAB PO SCH (09:00)
[2018-01-05] MEDS: METOPROLOL TARTRATE 50MG TABLET PO SCH (09:00)
[2018-01-05] MEDS: MINOXIDIL 2.5MG TABLET PO SCH (09:00)
[2018-01-05] MEDS: PANTOPRAZOLE SODIUM 40 MG/VIAL IV SCH (09:05)
[2018-01-05] MEDS: FUROSEMIDE 40MG/4ML VIAL IVP SCH (09:05)
[2018-01-05] MEDS: ACETAMINOPHEN 325MG TABLET PO PRN (10:03)
[2018-01-05] MEDS ORDERED: ETOMIDATE 2MG/ML 10ML VIAL IV ONE (13:24)
[2018-01-05] MEDS ORDERED: VECURONIUM BROMIDE 10 MG/VIAL IV ONE (13:24)
[2018-01-05] MEDS ORDERED: MORPHINE SULFATE 4 MG/ML CPJ (NOT FOR IM USE) IV PRN (15:00)
[2018-01-05] MEDS ORDERED: PIPERACILLIN/TAZ 2.25G PREMIX 50 ML IV SCH (16:00)
[2018-01-05] MEDS ORDERED: VANCOMYCIN 2,000 MG in DEXT 5% WATER 500 ML IV SCH (17:00)
[2018-01-05] MEDS: MONTELUKAST SODIUM 10MG TABLET PO SCH (17:00)
[2018-01-05 19:31] LABS: BG BASE EXCESS 3.2 mmol/L (-2.0-2.0); BG CARBOXYHEMOGLOBIN 0.4 % (0.5-1.5); BG FRACTION INSPIRED OXYGEN 60; BG HCO3 ACT 27.3 mmol/L (22.0-26.0); BG METHEMOGLOBIN 0.8 % (0.0-1.5); BG OXYHEMOGLOBIN 95.8 % (94.0-97.0); BG PCO2 39.6 mmHg (35.0-45.0); BG PH 7.457 (7.350-7.450); BG PO2 90.7 mmHg (75.0-100.0); BG SAMPLE SITE LEFT RADIAL; BG TIDAL VOLUME(mL) 550 mL; BG TOTAL HEMOGLOBIN 8.1 g/dL (12.0-18.0); BG VENT MODE VENT - A/C; BG VENT RATE 16 set
[2018-01-05] MEDS ORDERED: DOPAMINE 400MG PREMIX 250 ML IV SCH (20:30)
[2018-01-05] MEDS ORDERED: DOPAMINE 400MG PREMIX 250 ML IV PRN (20:30)
[2018-01-05] MEDS ORDERED: NIFEDIPINE XL 60MG TAB PO SCH (21:00)
[2018-01-05] MEDS: PIPERACILLIN/TAZ 2.25G PREMIX 50 ML IV SCH (22:31)
[2018-01-06] VITALS (40 sets, daily range): BP systolic 93–159; BP diastolic 38–96
[2018-01-06] MEDS: PROPOFOL 10MG/ML 100ML 100 ML IV PRN ×5 (00:29→21:14)
[2018-01-06] MEDS: IPRATROPIUM/ALBUTEROL 0.5-3(2.5)MG/3ML NEB HHN SCH ×4 (01:57→20:33)
[2018-01-06 05:55] LABS: BASOPHILS % 0.4 % (0.0-2.0); EOSINOPHILS % 1.6 % (0.0-5.0); HEMATOCRIT. 21.6 % (36.0-48.0); INR 1.1; LYMPHOCYTES % 7.6 % (20.0-50.0); MEAN CORPUSCULAR VOLUME 83.5 fL (81.0-99.0); MEAN PLATELET VOLUME 11.4 fl (7.4-10.4); MONOCYTES % 7.3 % (2.0-8.0); NEUTROPHILS % 83.1 % (40.0-76.0); PARTIAL THROMBOPLASTIN TIME 24.9 sec (23.4-31.0); PLATELET 205 x1000/uL (130-400); PROTHROMBIN TIME 11.1 sec (9.1-11.1); RED BLOOD CELL COUNT 2.59 mill/uL (4.2-5.4); RED CELL DISTRIBUTION WIDTH 16.9 % (11.6-14.6)
[2018-01-06 06:02] LABS: CHLORIDE 102 mEq/L (98-107)
[2018-01-06] MEDS: PIPERACILLIN/TAZ 2.25G PREMIX 50 ML IV SCH ×4 (06:28→21:52)
[2018-01-06 07:18] LABS: BG BASE EXCESS 3.9 mmol/L (-2.0-2.0); BG CARBOXYHEMOGLOBIN 0.7 % (0.5-1.5); BG DEOXYHEMOGLOBIN 1.6 % (0.0-5.0); BG HCO3 ACT 28.3 mmol/L (22.0-26.0); BG OXYGEN SATURATION 98.4 % (92.0-98.5); BG OXYHEMOGLOBIN 97.7 % (94.0-97.0); BG PCO2 41.6 mmHg (35.0-45.0); BG PO2 107.7 mmHg (75.0-100.0); BG SAMPLE SITE RIGHT RADIAL; BG TIDAL VOLUME(mL) 550 mL; BG TOTAL HEMOGLOBIN 7.2 g/dL (12.0-18.0); BG VENT MODE VENT - A/C; BG VENT RATE 16 set
[2018-01-06] MEDS: BLOOD SUGAR DIAGNOSTIC STRIP TEST SCH ×4 (07:50→21:00)
[2018-01-06] MEDS: INSULIN LISPRO 100 UNITS/ML SUBCUT SCH ×3 (08:20→18:20)
[2018-01-06] MEDS: MINOXIDIL 2.5MG TABLET PO SCH ×2 (09:00→21:52)
[2018-01-06] MEDS: METOPROLOL TARTRATE 50MG TABLET PO SCH ×2 (09:00→21:51)
[2018-01-06] MEDS: LOSARTAN POTASSIUM 50 MG TABLET PO SCH ×2 (09:00→17:00)
[2018-01-06] MEDS: FUROSEMIDE 40MG/4ML VIAL IVP SCH (09:00)
[2018-01-06] MEDS: PANTOPRAZOLE SODIUM 40 MG/VIAL IV SCH (09:37)
[2018-01-06] MEDS ORDERED: FENTANYL CITRATE/PF 50MCG/ML 2ML VIAL ONE (11:47)
[2018-01-06] MEDS ORDERED: MIDAZOLAM HCL 5 MG/5 ML VIAL ONE (11:47)
[2018-01-06] MEDS ORDERED: MIDAZOLAM HCL 5 MG/5 ML VIAL IV PRN (12:05)
[2018-01-06] MEDS ORDERED: DEXTROSE 5% WATER 1,000 ML IV SCH (13:45)
[2018-01-06] MEDS: HYDRALAZINE HCL 100MG TABLET PO SCH ×2 (13:58→21:51)
[2018-01-06] MEDS: CLONIDINE 0.2MG TABLET PO SCH ×2 (13:59→21:51)
[2018-01-06] MEDS ORDERED: SODIUM CHLORIDE 0.9% 10ML VIAL ONE (14:04)
[2018-01-06] MEDS: MONTELUKAST SODIUM 10MG TABLET PO SCH (17:00)
[2018-01-06] MEDS ORDERED: ROCURONIUM BROMIDE 10MG/ML VIAL 5ML IV ONE (18:25)
[2018-01-06] MEDS ORDERED: ONDANSETRON HCL 4MG/2ML INJ IV PRN (19:00)
[2018-01-06] MEDS ORDERED: MEPERIDINE HCL/PF 25MG/ML CPJ IV PRN (19:00)
[2018-01-06] MEDS ORDERED: FENTANYL CITRATE/PF 50MCG/ML 2ML VIAL IV PRN (19:00)
[2018-01-06] MEDS ORDERED: HYDROMORPHONE HCL/PF 2MG/ML CPJ IV PRN (19:00)
[2018-01-06] MEDS ORDERED: ATROPINE SULFATE 0.4MG/ML VIAL IV PRN (19:00)
[2018-01-06] MEDS ORDERED: SODIUM CHLORIDE 0.9% 500 ML IV SCH (19:00)
[2018-01-06] MEDS: EPOETIN ALFA 4000UNITS/ML VIAL SUBCUT SCH (21:56)
[2018-01-07] VITALS (18 sets, daily range): BP systolic 108–154; BP diastolic 40–65
[2018-01-07] MEDS: IPRATROPIUM/ALBUTEROL 0.5-3(2.5)MG/3ML NEB HHN SCH ×4 (02:03→20:10)
[2018-01-07] MEDS: PROPOFOL 10MG/ML 100ML 100 ML IV PRN (04:13)
[2018-01-07 06:05] LABS: BASOPHILS % 0.7 % (0.0-2.0); EOSINOPHILS % 2.6 % (0.0-5.0); HEMATOCRIT. 28.3 % (36.0-48.0); HEMOGLOBIN. 9.1 g/dL (12.0-16.0); LYMPHOCYTES % 11.7 % (20.0-50.0); MEAN CORPUSCULAR HEMOGLOBIN 26.2 pg (28.0-32.0); MEAN CORPUSCULAR VOLUME 81.8 fL (81.0-99.0); MEAN PLATELET VOLUME 11.8 fl (7.4-10.4); MONOCYTES % 6.9 % (2.0-8.0); NEUTROPHILS % 78.1 % (40.0-76.0); PLATELET 173 x1000/uL (130-400); RED BLOOD CELL COUNT 3.46 mill/uL (4.2-5.4); RED CELL DISTRIBUTION WIDTH 16.9 % (11.6-14.6)
[2018-01-07] MEDS: INSULIN LISPRO 100 UNITS/ML SUBCUT SCH ×4 (06:30→18:00)
[2018-01-07] MEDS: PIPERACILLIN/TAZ 2.25G PREMIX 50 ML IV SCH ×2 (06:31→14:19)
[2018-01-07] MEDS: BLOOD SUGAR DIAGNOSTIC STRIP TEST SCH ×3 (06:32→18:26)
[2018-01-07] MEDS: HYDRALAZINE HCL 100MG TABLET PO SCH ×3 (06:52→23:06)
[2018-01-07] MEDS: CLONIDINE 0.2MG TABLET PO SCH ×3 (06:52→23:05)
[2018-01-07 07:16] LABS: BG BASE EXCESS 3.2 mmol/L (-2.0-2.0); BG CARBOXYHEMOGLOBIN 0.3 % (0.5-1.5); BG DEOXYHEMOGLOBIN 4.5 % (0.0-5.0); BG HCO3 ACT 26.6 mmol/L (22.0-26.0); BG METHEMOGLOBIN 0.5 % (0.0-1.5); BG OXYGEN SATURATION 95.5 % (92.0-98.5); BG OXYHEMOGLOBIN 94.7 % (94.0-97.0); BG PCO2 35.4 mmHg (35.0-45.0); BG PH 7.493 (7.350-7.450); BG PO2 75.1 mmHg (75.0-100.0); BG SAMPLE SITE RIGHT RADIAL; BG TIDAL VOLUME(mL) 550 mL; BG TOTAL HEMOGLOBIN 9.6 g/dL (12.0-18.0); BG VENT MODE VENT - A/C; BG VENT RATE 16 set
[2018-01-07] MEDS: LORAZEPAM 2MG/ML CPJ IV PRN (07:44)
[2018-01-07] MEDS: PANTOPRAZOLE SODIUM 40 MG/VIAL IV SCH (09:17)
[2018-01-07] MEDS: LOSARTAN POTASSIUM 50 MG TABLET PO SCH ×2 (09:17→16:42)
[2018-01-07] MEDS: METOPROLOL TARTRATE 50MG TABLET PO SCH ×2 (09:18→21:27)
[2018-01-07] MEDS: MINOXIDIL 2.5MG TABLET PO SCH ×2 (09:18→21:26)
[2018-01-07] MEDS ORDERED: DEXTROSE 50% WATER 50ML SYRINGE IV PRN ×2 (09:30→13:00)
[2018-01-07] MEDS: MONTELUKAST SODIUM 10MG TABLET PO SCH (16:41)
[2018-01-07] MEDS ORDERED: BLOOD SUGAR DIAGNOSTIC STRIP TEST SCH (18:00)
[2018-01-08] VITALS (12 sets, daily range): BP systolic 102–157; BP diastolic 40–62
[2018-01-08] MEDS: PIPERACILLIN/TAZ 2.25G PREMIX 50 ML IV SCH ×5 (00:54→21:51)
[2018-01-08] MEDS: BLOOD SUGAR DIAGNOSTIC STRIP TEST SCH ×4 (00:54→18:15)
[2018-01-08] MEDS: IPRATROPIUM/ALBUTEROL 0.5-3(2.5)MG/3ML NEB HHN SCH (02:05)
[2018-01-08] MEDS: INSULIN LISPRO 100 UNITS/ML SUBCUT SCH ×4 (06:00→18:00)
[2018-01-08] MEDS: CLONIDINE 0.2MG TABLET PO SCH ×3 (06:05→21:51)
[2018-01-08] MEDS: HYDRALAZINE HCL 100MG TABLET PO SCH ×3 (06:05→21:50)
[2018-01-08 06:40] LABS: BASOPHILS % 0.4 % (0.0-2.0); EOSINOPHILS % 2.8 % (0.0-5.0); HEMATOCRIT. 25.8 % (36.0-48.0); HEMOGLOBIN. 8.5 g/dL (12.0-16.0); LYMPHOCYTES % 9.1 % (20.0-50.0); MEAN CORPUSCULAR HEMOGLOBIN 26.9 pg (28.0-32.0); MEAN CORPUSCULAR VOLUME 81.2 fL (81.0-99.0); MEAN PLATELET VOLUME 12.1 fl (7.4-10.4); MONOCYTES % 9.8 % (2.0-8.0); NEUTROPHILS % 77.9 % (40.0-76.0); PLATELET 152 x1000/uL (130-400); RED BLOOD CELL COUNT 3.18 mill/uL (4.2-5.4); RED CELL DISTRIBUTION WIDTH 16.7 % (11.6-14.6)
[2018-01-08] MEDS: PANTOPRAZOLE SODIUM 40 MG/VIAL IV SCH ×2 (09:00→17:16)
[2018-01-08] MEDS: METOPROLOL TARTRATE 50MG TABLET PO SCH ×2 (09:00→21:51)
[2018-01-08] MEDS: LOSARTAN POTASSIUM 50 MG TABLET PO SCH ×2 (09:00→17:18)
[2018-01-08] MEDS: MINOXIDIL 2.5MG TABLET PO SCH ×2 (09:00→21:50)
[2018-01-08] MEDS: MONTELUKAST SODIUM 10MG TABLET PO SCH (17:18)
[2018-01-08] MEDS: LORAZEPAM 2MG/ML CPJ IV PRN (18:19)
[2018-01-08] MEDS ORDERED: VANCOMYCIN 750 MG PREMIX 150 ML IV SCH (20:00)
[2018-01-08] MEDS: EPOETIN ALFA 4000UNITS/ML VIAL SUBCUT SCH (21:52)
[2018-01-09] VITALS (12 sets, daily range): BP systolic 125–150; BP diastolic 42–62
[2018-01-09] MEDS: CLONIDINE 0.2MG TABLET PO SCH ×3 (05:33→21:56)
[2018-01-09] MEDS: HYDRALAZINE HCL 100MG TABLET PO SCH ×3 (05:33→21:56)
[2018-01-09] MEDS: PIPERACILLIN/TAZ 2.25G PREMIX 50 ML IV SCH ×3 (05:33→21:49)
[2018-01-09] MEDS: BLOOD SUGAR DIAGNOSTIC STRIP TEST SCH ×5 (06:00→23:34)
[2018-01-09] MEDS: INSULIN LISPRO 100 UNITS/ML SUBCUT SCH ×5 (06:00→23:34)
[2018-01-09 06:42] LABS: BASOPHILS % 0.9 % (0.0-2.0); EOSINOPHILS % 2.8 % (0.0-5.0); HEMATOCRIT. 27.4 % (36.0-48.0); HEMOGLOBIN. 8.9 g/dL (12.0-16.0); LYMPHOCYTES % 9.2 % (20.0-50.0); MEAN CORPUSCULAR HEMOGLOBIN 26.6 pg (28.0-32.0); MEAN CORPUSCULAR VOLUME 81.9 fL (81.0-99.0); NEUTROPHILS % 77.1 % (40.0-76.0); PLATELET 173 x1000/uL (130-400); RED BLOOD CELL COUNT 3.34 mill/uL (4.2-5.4); RED CELL DISTRIBUTION WIDTH 16.7 % (11.6-14.6)
[2018-01-09] MEDS: MINOXIDIL 2.5MG TABLET PO SCH ×2 (09:02→20:40)
[2018-01-09] MEDS: PANTOPRAZOLE SODIUM 40 MG/VIAL IV SCH (09:02)
[2018-01-09] MEDS: LOSARTAN POTASSIUM 50 MG TABLET PO SCH ×2 (09:03→16:46)
[2018-01-09] MEDS: METOPROLOL TARTRATE 50MG TABLET PO SCH ×2 (09:03→20:41)
[2018-01-10] VITALS (13 sets, daily range): BP systolic 122–165; BP diastolic 44–73
[2018-01-10] MEDS: PIPERACILLIN/TAZ 2.25G PREMIX 50 ML IV SCH ×3 (05:04→21:08)
[2018-01-10] MEDS: HYDRALAZINE HCL 100MG TABLET PO SCH ×3 (05:10→23:48)
[2018-01-10] MEDS: BLOOD SUGAR DIAGNOSTIC STRIP TEST SCH ×3 (05:10→18:08)
[2018-01-10] MEDS: CLONIDINE 0.2MG TABLET PO SCH ×3 (05:10→21:09)
[2018-01-10] MEDS: INSULIN LISPRO 100 UNITS/ML SUBCUT SCH ×3 (05:45→18:00)
[2018-01-10] MEDS: IPRATROPIUM/ALBUTEROL 0.5-3(2.5)MG/3ML NEB HHN PRN (08:26)
[2018-01-10] MEDS: MINOXIDIL 2.5MG TABLET PO SCH ×2 (08:32→21:09)
[2018-01-10] MEDS: METOPROLOL TARTRATE 50MG TABLET PO SCH (08:33)
[2018-01-10] MEDS: LOSARTAN POTASSIUM 50 MG TABLET PO SCH ×2 (08:33→16:40)
[2018-01-10] MEDS: ACETAMINOPHEN 650MG/20.3ML UDC PO PRN (08:34)
[2018-01-10] MEDS: PANTOPRAZOLE SODIUM 40 MG/VIAL IV SCH (08:34)
[2018-01-10] MEDS: LORAZEPAM 2MG/ML CPJ IV PRN (21:09)
[2018-01-11] VITALS (15 sets, daily range): BP systolic 96–164; BP diastolic 44–105
[2018-01-11] MEDS: BLOOD SUGAR DIAGNOSTIC STRIP TEST SCH ×4 (00:38→17:09)
[2018-01-11] MEDS: CLONIDINE 0.2MG TABLET PO SCH ×3 (05:06→21:23)
[2018-01-11] MEDS: HYDRALAZINE HCL 100MG TABLET PO SCH ×3 (05:06→21:23)
[2018-01-11] MEDS: PIPERACILLIN/TAZ 2.25G PREMIX 50 ML IV SCH ×3 (05:42→21:22)
[2018-01-11] MEDS: INSULIN LISPRO 100 UNITS/ML SUBCUT SCH ×4 (05:43→17:09)
[2018-01-11 07:30] LABS: EOSINOPHILS % 2.6 % (0.0-5.0); HEMATOCRIT. 28.3 % (36.0-48.0); HEMOGLOBIN. 9.1 g/dL (12.0-16.0); LYMPHOCYTES % 11.3 % (20.0-50.0); MEAN CORPUSCULAR HEMOGLOBIN 26.2 pg (28.0-32.0); MEAN CORPUSCULAR VOLUME 81.6 fL (81.0-99.0); MEAN PLATELET VOLUME 11.5 fl (7.4-10.4); MONOCYTES % 9.7 % (2.0-8.0); NEUTROPHILS % 75.4 % (40.0-76.0); PLATELET 194 x1000/uL (130-400); RED BLOOD CELL COUNT 3.47 mill/uL (4.2-5.4); RED CELL DISTRIBUTION WIDTH 15.9 % (11.6-14.6)
[2018-01-11] MEDS: IPRATROPIUM/ALBUTEROL 0.5-3(2.5)MG/3ML NEB HHN PRN ×3 (08:30→16:15)
[2018-01-11] MEDS: PANTOPRAZOLE SODIUM 40 MG/VIAL IV SCH (09:00)
[2018-01-11] MEDS: MINOXIDIL 2.5MG TABLET PO SCH ×2 (09:30→21:23)
[2018-01-11] MEDS: LOSARTAN POTASSIUM 50 MG TABLET PO SCH ×2 (09:30→17:10)
[2018-01-11] MEDS: LACTOBACILLUS GG CAPSULE PO SCH (13:20)
[2018-01-11] MEDS ORDERED: VANCOMYCIN 1 G PREMIX 200 ML IV SCH (15:00)
[2018-01-11] MEDS: ACETAMINOPHEN 650MG/20.3ML UDC PO PRN (17:10)
[2018-01-12] VITALS (12 sets, daily range): BP systolic 127–157; BP diastolic 50–72
[2018-01-12] MEDS: BLOOD SUGAR DIAGNOSTIC STRIP TEST SCH ×5 (00:43→23:08)
[2018-01-12] MEDS: PIPERACILLIN/TAZ 2.25G PREMIX 50 ML IV SCH ×3 (05:44→21:06)
[2018-01-12] MEDS: HYDRALAZINE HCL 100MG TABLET PO SCH ×3 (05:44→21:05)
[2018-01-12] MEDS: CLONIDINE 0.2MG TABLET PO SCH ×3 (05:44→21:06)
[2018-01-12] MEDS: INSULIN LISPRO 100 UNITS/ML SUBCUT SCH ×5 (05:45→23:08)
[2018-01-12 08:34] LABS: BASOPHILS % 0.8 % (0.0-2.0); EOSINOPHILS % 2.3 % (0.0-5.0); HEMATOCRIT. 28.5 % (36.0-48.0); HEMOGLOBIN. 8.9 g/dL (12.0-16.0); LYMPHOCYTES % 9.1 % (20.0-50.0); MEAN CORPUSCULAR HEMOGLOBIN 25.2 pg (28.0-32.0); MEAN CORPUSCULAR VOLUME 80.9 fL (81.0-99.0); MEAN PLATELET VOLUME 12.1 fl (7.4-10.4); MONOCYTES % 8.9 % (2.0-8.0); NEUTROPHILS % 78.9 % (40.0-76.0); PLATELET 221 x1000/uL (130-400); RED BLOOD CELL COUNT 3.53 mill/uL (4.2-5.4); RED CELL DISTRIBUTION WIDTH 16.3 % (11.6-14.6)
[2018-01-12] MEDS: IPRATROPIUM/ALBUTEROL 0.5-3(2.5)MG/3ML NEB HHN PRN (08:35)
[2018-01-12 09:06] LABS: HIV SCREEN 4G Non Reactive (Non Reactive)
[2018-01-12] MEDS: PANTOPRAZOLE SODIUM 40 MG/VIAL IV SCH (10:08)
[2018-01-12] MEDS: LACTOBACILLUS GG CAPSULE PO SCH (10:09)
[2018-01-12] MEDS: LOSARTAN POTASSIUM 50 MG TABLET PO SCH ×2 (10:09→19:06)
[2018-01-12] MEDS: MINOXIDIL 2.5MG TABLET PO SCH ×2 (10:09→21:05)
[2018-01-12] MEDS: NYSTATIN POWDER 15GM TOP SCH ×2 (11:09→21:27)
[2018-01-13] VITALS (9 sets, daily range): BP systolic 131–163; BP diastolic 48–99
[2018-01-13] MEDS: BLOOD SUGAR DIAGNOSTIC STRIP TEST SCH ×3 (05:16→18:20)
[2018-01-13] MEDS: INSULIN LISPRO 100 UNITS/ML SUBCUT SCH ×3 (05:16→18:00)
[2018-01-13] MEDS: HYDRALAZINE HCL 100MG TABLET PO SCH ×3 (05:22→22:19)
[2018-01-13] MEDS: CLONIDINE 0.2MG TABLET PO SCH ×3 (05:22→22:20)
[2018-01-13] MEDS: LOSARTAN POTASSIUM 50 MG TABLET PO SCH ×2 (08:19→18:25)
[2018-01-13] MEDS: PANTOPRAZOLE SODIUM 40 MG/VIAL IV SCH (08:19)
[2018-01-13] MEDS: MINOXIDIL 2.5MG TABLET PO SCH ×2 (08:19→21:05)
[2018-01-13] MEDS: LACTOBACILLUS GG CAPSULE PO SCH (08:20)
[2018-01-13] MEDS: NYSTATIN POWDER 15GM TOP SCH ×2 (08:34→21:06)
[2018-01-14] VITALS: BP 158/70
[2018-01-14] MEDS: INSULIN LISPRO 100 UNITS/ML SUBCUT SCH
[2018-01-14] MEDS: BLOOD SUGAR DIAGNOSTIC STRIP TEST SCH (00:25)
== END 2018-01-14 01:02 | DRG 4 ==
LOC: ER 11:50 → 7WST 13:51 → ENRESERV 14:13 → 5EST 12-11 16:38 → MICUSO 12-17 19:05 → 5EST 12-22 14:00 → CVICU 01-05 14:44 → 5EST 01-07 11:50
PROVIDERS: ADMIT Internal Medicine Nephrology; ATTEND Internal Medicine Nephrology
PROC: 30233N1 Transfusion of Nonautologous Red Blood Cells into Peripheral Vein, Percutaneous Approach (ICD-10-PCS; 2017-12-11)
PROC: 5A09357 Assistance with Respiratory Ventilation, Less than 24 Consecutive Hours, Continuous Positive Airway Pressure (ICD-10-PCS; 2017-12-11)
PROC: 5A09357 Assistance with Respiratory Ventilation, Less than 24 Consecutive Hours, Continuous Positive Airway Pressure (ICD-10-PCS; 2017-12-13)
PROC: 5A09357 Assistance with Respiratory Ventilation, Less than 24 Consecutive Hours, Continuous Positive Airway Pressure (ICD-10-PCS; 2017-12-14)
PROC: 05H933Z Insertion of Infusion Device into Right Brachial Vein, Percutaneous Approach (ICD-10-PCS; 2017-12-15)
PROC: B54MZZA Ultrasonography of Right Upper Extremity Veins, Guidance (ICD-10-PCS; 2017-12-15)
PROC: 5A09357 Assistance with Respiratory Ventilation, Less than 24 Consecutive Hours, Continuous Positive Airway Pressure (ICD-10-PCS; 2017-12-16)
PROC: 5A12012 Performance of Cardiac Output, Single, Manual (ICD-10-PCS; 2017-12-17)
PROC: 0BH17EZ Insertion of Endotracheal Airway into Trachea, Via Natural or Artificial Opening (ICD-10-PCS; 2017-12-17)
PROC: 5A1945Z Respiratory Ventilation, 24-96 Consecutive Hours (ICD-10-PCS; 2017-12-17)
PROC: 02HV33Z Insertion of Infusion Device into Superior Vena Cava, Percutaneous Approach (ICD-10-PCS; 2017-12-18)
PROC: B548ZZA Ultrasonography of Superior Vena Cava, Guidance (ICD-10-PCS; 2017-12-18)
PROC: 5A1D70Z Performance of Urinary Filtration, Intermittent, Less than 6 Hours Per Day (ICD-10-PCS; 2017-12-18)
PROC: 05HY33Z Insertion of Infusion Device into Upper Vein, Percutaneous Approach (ICD-10-PCS; 2017-12-21)
PROC: B54MZZA Ultrasonography of Right Upper Extremity Veins, Guidance (ICD-10-PCS; 2017-12-21)
PROC: 5A09357 Assistance with Respiratory Ventilation, Less than 24 Consecutive Hours, Continuous Positive Airway Pressure (ICD-10-PCS; 2017-12-21)
PROC: 5A1D70Z Performance of Urinary Filtration, Intermittent, Less than 6 Hours Per Day (ICD-10-PCS; 2017-12-21)
PROC: 5A09357 Assistance with Respiratory Ventilation, Less than 24 Consecutive Hours, Continuous Positive Airway Pressure (ICD-10-PCS; 2017-12-22)
PROC: 5A09357 Assistance with Respiratory Ventilation, Less than 24 Consecutive Hours, Continuous Positive Airway Pressure (ICD-10-PCS; 2017-12-23)
PROC: 5A1D70Z Performance of Urinary Filtration, Intermittent, Less than 6 Hours Per Day (ICD-10-PCS; 2017-12-23)
PROC: 5A09357 Assistance with Respiratory Ventilation, Less than 24 Consecutive Hours, Continuous Positive Airway Pressure (ICD-10-PCS; 2017-12-24)
PROC: 5A09357 Assistance with Respiratory Ventilation, Less than 24 Consecutive Hours, Continuous Positive Airway Pressure (ICD-10-PCS; 2017-12-25)
PROC: 5A09357 Assistance with Respiratory Ventilation, Less than 24 Consecutive Hours, Continuous Positive Airway Pressure (ICD-10-PCS; 2017-12-26)
PROC: 5A09357 Assistance with Respiratory Ventilation, Less than 24 Consecutive Hours, Continuous Positive Airway Pressure (ICD-10-PCS; 2017-12-27)
PROC: 5A09357 Assistance with Respiratory Ventilation, Less than 24 Consecutive Hours, Continuous Positive Airway Pressure (ICD-10-PCS; 2017-12-28)
PROC: 5A1D70Z Performance of Urinary Filtration, Intermittent, Less than 6 Hours Per Day (ICD-10-PCS; 2017-12-28)
PROC: 5A09357 Assistance with Respiratory Ventilation, Less than 24 Consecutive Hours, Continuous Positive Airway Pressure (ICD-10-PCS; 2017-12-29)
PROC: 5A09357 Assistance with Respiratory Ventilation, Less than 24 Consecutive Hours, Continuous Positive Airway Pressure (ICD-10-PCS; 2017-12-30)
PROC: 5A1D70Z Performance of Urinary Filtration, Intermittent, Less than 6 Hours Per Day (ICD-10-PCS; 2017-12-30)
PROC: 5A09357 Assistance with Respiratory Ventilation, Less than 24 Consecutive Hours, Continuous Positive Airway Pressure (ICD-10-PCS; 2018-01-02)
PROC: 02HV33Z Insertion of Infusion Device into Superior Vena Cava, Percutaneous Approach (ICD-10-PCS; 2018-01-04)
PROC: B548ZZA Ultrasonography of Superior Vena Cava, Guidance (ICD-10-PCS; 2018-01-04)
PROC: 5A1D70Z Performance of Urinary Filtration, Intermittent, Less than 6 Hours Per Day (ICD-10-PCS; 2018-01-04)
PROC: 0B113F4 Bypass Trachea to Cutaneous with Tracheostomy Device, Percutaneous Approach (ICD-10-PCS; 2018-01-06)
PROC: 0GBJ0ZZ Excision of Thyroid Gland Isthmus, Open Approach (ICD-10-PCS; 2018-01-06)
PROC: 0DH63UZ Insertion of Feeding Device into Stomach, Percutaneous Approach (ICD-10-PCS; 2018-01-06)
PROC: 5A1955Z Respiratory Ventilation, Greater than 96 Consecutive Hours (ICD-10-PCS; principal; 2018-01-06 11:30)
PROC: 5A1D70Z Performance of Urinary Filtration, Intermittent, Less than 6 Hours Per Day (ICD-10-PCS; 2018-01-08)
PROC: 5A1D70Z Performance of Urinary Filtration, Intermittent, Less than 6 Hours Per Day (ICD-10-PCS; 2018-01-10)
PROC: 5A1D70Z Performance of Urinary Filtration, Intermittent, Less than 6 Hours Per Day (ICD-10-PCS; 2018-01-13)
DX: A41.9 Sepsis, unspecified organism (principal); N17.0 Acute kidney failure with tubular necrosis; J69.0 Pneumonitis due to inhalation of food and vomit; E43 Unspecified severe protein-calorie malnutrition; G93.41 Metabolic encephalopathy; I50.43 Acute on chronic combined systolic (congestive) and diastolic (congestive) heart failure; J96.21 Acute and chronic respiratory failure with hypoxia; J84.9 Interstitial pulmonary disease, unspecified; E66.01 Morbid (severe) obesity due to excess calories; I27.20 Pulmonary hypertension, unspecified; J44.1 Chronic obstructive pulmonary disease with (acute) exacerbation; I13.0 Hypertensive heart and chronic kidney disease with heart failure and stage 1 through stage 4 chronic kidney disease, or unspecified chronic kidney disease; I46.9 Cardiac arrest, cause unspecified; N18.4 Chronic kidney disease, stage 4 (severe); B19.20 Unspecified viral hepatitis C without hepatic coma; D63.8 Anemia in other chronic diseases classified elsewhere; E11.22 Type 2 diabetes mellitus with diabetic chronic kidney disease; E87.0 Hyperosmolality and hypernatremia; G47.33 Obstructive sleep apnea (adult) (pediatric); J98.11 Atelectasis; K92.0 Hematemesis; N04.9 Nephrotic syndrome with unspecified morphologic changes; F50.89 Other specified eating disorder; J44.0 Chronic obstructive pulmonary disease with (acute) lower respiratory infection; N13.9 Obstructive and reflux uropathy, unspecified; N39.0 Urinary tract infection, site not specified; R13.10 Dysphagia, unspecified; T50.2X5A Adverse effect of carbonic-anhydrase inhibitors, benzothiadiazides and other diuretics, initial encounter; Z99.2 Dependence on renal dialysis; Y92.89 Other specified places as the place of occurrence of the external cause; Z78.1 Physical restraint status; Z82.49 Family history of ischemic heart disease and other diseases of the circulatory system; Z86.73 Personal history of transient ischemic attack (TIA), and cerebral infarction without residual deficits; Z91.19 Patient's noncompliance with other medical treatment and regimen; Z68.39 Body mass index [BMI] 39.0-39.9, adult; Z79.82 Long term (current) use of aspirin; Z79.899 Other long term (current) drug therapy
CPT/HCPCS: 31500; 36415; 36556; 36569; 36597; 36600; 70551; 71045; 76937; 77001; 80048; 80076; 80202; 82140; 82270; 82375; 82553; 82728; 82805; 82962; 83540; 83550; 83605; 83735; 83880; 83970; 84100; 84478; 84484; 85014; 85018; 85384; 86705; 86709; 86803; 86850; 86870; 86880; 86900; 86920; 87015; 87045; 87070; 87340; 87389; 87427; 87449; 89055; 92610; 92950; 93005; 93306; 93970; 94002; 94003; 94640; 94660; 94667; 96374; 96375; 97162; 97164; 97166; 97168; 97530; 99285; A4216; A6261; C1725; C1752; C1893; C9113; J0360; J0461; J0692; J0885; J1170; J1644; J1650; J1815; J1940; J2060; J2250; J2405; J2543; J2704; J3010; J3370; J3490; J7030; J7040; J7050; J7060; J7070; J7620; P9016; P9041; P9047; A4315